=== PATIENT | male | born 1955 | race Caucasian/White ===

== ENCOUNTER 2019-03-24 19:33 | Inpatient (IN) | payer MEDICAID, SELFPAY ==
[2019-03-24] VITALS (9 sets, daily range): BP systolic 122–154; BP diastolic 76–111; PULSE 56–80; RESP 11–25; TEMP 36.5; O2SAT 96–100; BMI 25.6
--- NOTE | 2019-03-24 19:34 | CT_ITS ---
We are attempting to reach an attending provider to discuss findings. An addendum with communication details will be sent when the communication is complete. STUDY: CT BRAIN WITHOUT CONTRAST REASON FOR EXAM: Male, 63 years old. Evaluate for stroke RADIATION DOSAGE (If Supplied By Facility): DLP = ( 812.98 ) mGycm TECHNIQUE: Transaxial CT imaging of the brain was performed without administration of intravenous contrast material. Individualized dose optimization techniques were used for this CT. COMPARISON: None. FINDINGS: There is no acute bleed or infarct. There are normal white matter tracts. The ventricles are normal in configuration. There is no hydrocephalus. The visualized paranasal sinuses are clear. The mastoid air cells are well aerated. There is no skull fracture. CT/Brain/Head without Contrast IMPRESSION: No acute intracranial abnormality. Electronically Signed: Luis Eduardo Newman, at 19:53 EDT Tel , Service support ,
--- NOTE | 2019-03-24 19:34 | RAD_ITS ---
STUDY: X-RAY CHEST REASON FOR EXAM: Male, 63 years old. Neurological symptoms TECHNIQUE: Frontal view of the chest COMPARISON: None. FINDINGS: Trace pulmonary edema is present. There is no consolidation. There are no pleural effusions. There is no pneumothorax. The heart is normal in size. The visualized osseous structures are within normal limits. RAD/Chest 1 View IMPRESSION: Trace pulmonary edema. No consolidation. Electronically Signed: Luis Eduardo Newman, at 20:06 EDT Tel , Service support ,
--- NOTE | 2019-03-24 19:34 | EKG12_ITS ---
Test Reason : NEURO Blood Pressure : / mmHG Vent. Rate : 062 BPM Atrial Rate : 062 BPM P-R Int : 168 ms QRS Dur : 100 ms QT Int : 414 ms P-R-T Axes : 050 -13 031 degrees QTc Int : 420 ms Normal sinus rhythm Minimal voltage criteria for LVH, may be normal variant Borderline ECG Confirmed by KADI WOODS, LUSI A ([id number]), editor in chief SHELL RINCON ([id number]) on 03/27/2019 1:49:52 PM Referred By: Gerardo Abrams Confirmed By:MICHAEL WALLIS MD
--- NOTE | 2019-03-24 19:38 | ED.DCSUM_ITS ---
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 No one else with him. Found in the local parking lot next to his truck not acting right. Very limited history available. Prehospital stroke team called in. Capacity - Capacity Assessment Tool Can the patient make a choice & communicate that choice?: Unable to Determine Can the patient understand benefits, risks and alternatives?: No Can the patient make a logical, rational choice?: No Is the choice the patient makes consistent w/ their values?: Unable to Determine Is there an impending, emergent risk to the patient?: Yes - Altered, difficulty standing, trying to leave ([id number]) Does the patient have an Advance Directive?: Unable to Determine Is there a Surrogate Available?: No i.e. HCPOA: No i.e. close relative (spouse, child, parent, sibling)?: No - Past Medical History (1) Switzer's disease Status: Chronic Past Medical History - Allergies and Home Meds Allergies/Adverse Reactions: Allergies No Known Allergies Allergy (Verified 12/30/14 10:59) Primary Care Physician: Care Physician,No Primary [Primary Care Provider] - Smoking Status: Unknown if ever smoked Review of Systems ROS: Unable to Obtain STROKE - NIHSS Initial 1a Level of Consciousness: 0 1b LOC Questions (Score 2 if aphasic/stupor): 2 1c LOC Commands (Only score 1st attempt): 2 2 Best Gaze (If aphasic, use reflexive mvmts.): 0 3 Visual: 0 4 Facial Palsy: 0 5 Motor Arm Right (UN = amputation/fusion): 3 5 Motor Arm Left: 3 6 Motor Leg Right: 3 6 Motor Leg Left: 3 7 Limb ataxia (Only + if out of proportion): 0 8 Sensory (Aphasia/stupor=0 or 1, coma=2): 1 9 Best Language: 3 10 Dysarthria (mute, coma=2, intubated=UN): 2 11 Extinction and Inattention (only scored if +): 0 Total Score: 22 General: Well nourished, Well developed, Unkempt Head: Normocephalic, Atraumatic Eyes: Perrl, EOMI - Grossly intact, patient not following commands ENT: Moist mucous membranes, No rhinorrhea Neck: Supple, Nontender Cardiovascular: Regular rate, Regular rhythm, No murmurs Respiratory: No distress, CTA bilaterally, Chest nontender Abdomen: Soft, Nontender, Nondistended, Normal bowel sounds Back: Nontender, Normal Inspection Extremities: Nontender, No edema Skin: Normal color, No rash, Trauma - Contusion/abrasion with a small amount of blood left zygomatic arch without step-off or crepitance Neurological: Alert, Cranial nerves II-XII grossly intact, Normal Strength, Normal Sensation, Confused - Does not follow commands appropriately although at times seems to try to squeeze with his hand and lift his arm., Disoriented Psychological: - - Incontinent of urine and smells of urine. Difficult to tell if he smells of alcohol or not but patient sort of acts intoxicated. Diagnostic/Tx/Re-eval Impressions Brain CT 03/24/19 19:34 IMPRESSION: No acute intracranial abnormality. Electronically Signed: Luis Eduardo Newman, at 19:53 EDT Tel , Service support , ADDENDUM: 03/24/192000 IMPRESSION: No acute intracranial abnormality. N.B. : The above information has been verbally conveyed by Luis Eduardo Newman to Dr. Meir Arenas MD, on 03/24/2019 19:54:46 (ET). Electronically Signed: Luis Eduardo Newman, at 19:53 EDT Tel , Service support , Chest X-Ray 03/24/19 19:34 IMPRESSION: Trace pulmonary edema. No consolidation. Electronically Signed: Luis Eduardo Newman, at 20:06 EDT Tel , Service support , Head/Neck CTA 09/17/19 19:51 IMPRESSION: No CTA evidence of significant intracranial arterial pathology. No CTA evidence of significant arterial pathology in the neck. NASCET criteria was used. Electronically Signed: Дмитрий Glynn MD at 21:01 EDT Tel , Service support , 03/24/19 19:34 Brain/Head without Contrast [CT] Stat Chest 1 View [RAD] Stat 03/24/19 19:51 CTA Head AND Neck W/ Contrast [CT] Stat Laboratory Results 03/24/19 03/24/19 03/24/19 19:46 19:46 19:46 WBC 6.5 RBC 4.26 L Hgb 13.3 Hct 40.7 MCV 95.5 H MCH 31.2 MCHC 32.7 RDW Std Deviation 43.8 RDW Coeff of Anna 12.7 Plt Count 152 MPV 10.7 Immature Gran % (Auto) 0.600 Neut % (Auto) 73.8 H Lymph % (Auto) 15.9 L [place] % (Auto) 9.0 Eos % (Auto) 0.2 Baso % (Auto) 0.5 Absolute Neuts (auto) 4.8 Absolute Lymphs (auto) 1.03 Nucleated RBC % 0 PT 12.9 INR 1.0 APTT 25.1 Sodium 145 Potassium 4.3 Chloride 111 H Carbon Dioxide 31.0 Anion Gap 3 L BUN 17 Creatinine 0.83 Estim Creat Clear Calc 80.27 Est GFR (MDRD) Af Amer 120 Est GFR (MDRD) Non-Af 99 BUN/Creatinine Ratio 20.4 H Glucose 102 Calcium 8.7 Troponin I < 0.015 Urine Opiates Screen Urine Methadone Screen Ur Barbiturates Screen Ur Phencyclidine Scrn Ur Amphetamines Screen U Methamphetamin-MDMA U Benzodiazepines Scrn Urine Cocaine Screen U Cannabinoids Screen Ur Drug Screen Comment Ethyl Alcohol 03/24/19 03/24/19 19:46 19:49 WBC RBC Hgb Hct MCV MCH MCHC RDW Std Deviation RDW Coeff of Anna Plt Count MPV Immature Gran % (Auto) Neut % (Auto) Lymph % (Auto) [place] % (Auto) Eos % (Auto) Baso % (Auto) Absolute Neuts (auto) Absolute Lymphs (auto) Nucleated RBC % PT INR APTT Sodium Potassium Chloride Carbon Dioxide Anion Gap BUN Creatinine Estim Creat Clear Calc Est GFR (MDRD) Af Amer Est GFR (MDRD) Non-Af BUN/Creatinine Ratio Glucose Calcium Troponin I Urine Opiates Screen NEGATIVE Urine Methadone Screen NEGATIVE Ur Barbiturates Screen NEGATIVE Ur Phencyclidine Scrn NEGATIVE Ur Amphetamines Screen NEGATIVE U Methamphetamin-MDMA NEGATIVE U Benzodiazepines Scrn NEGATIVE Urine Cocaine Screen NEGATIVE U Cannabinoids Screen NEGATIVE Ur Drug Screen Comment Ethyl Alcohol 5.0 - Rhythm Strip Rhythm Strip: Sinus Rhythm Ectopy: None - EKG Initial EKG Interpretation: Sinus Rhythm, No Acute Injury Pattern Prior: No Prior - Medical Decision Making Stroke Team Activated: Yes - prehosp Was Patient considered for Endovascular Intervention?: Yes - neg CTA for LVO IV Alteplase (t-PA) Administered: No - due to unk timing, evidence of recent head trauma, nonlateralizing neuro ex Patient return from CT as social work had found a friend's information and discussed with him over the phone. 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 He also states that his speech is not good at baseline, but he does attempt to talk, unlike now. CT result given to me personally over the phone by the radiologist at 1953. Discussed with tele-neurology from [facility], with the relative contraindication of evidence of possible head injury, with a contusion on the left zygomatic arch, and nonfocal exam, in addition to unknown last seen normal, she agrees that IV TPA is not indicated. She recommends obtaining CT angiography to be comprehensive and make sure nothing gets missed, this was done and showed no LVO. The rest of the work-up is in addition negative. I monitored him. He slept some. I reexamined him, he is able to talk, but he is very difficult to understand. He states that he is homeless, he stays with a swathi named Flakito, knows he is in [place] but has no idea what city he is in, or what year it is. I do not think he has the capacity to leave AGAINST MEDICAL ADVICE which he is trying to do, telling me that he can walk out of here, he does not appear to be in any condition to do that, and has a very difficult time standing. He was given Ativan due to all of this and the plan is for admission for further evaluation and monitoring. Critical care time (excluding procedures): 30-74 minutes - 35 min, including time spent discussing with consultants, arranging admission, performing direct patient care at the bedside ED Disposition - Plan for ED Patient: Disposition: Acute Care Hospital [facility] Diagnosis: Acute encephalopathy, Switzer's disease Referrals: Care Physician,No Primary [Primary Care Provider] -
--- NOTE | 2019-03-24 19:41 | ED.RN ---
NO OLD EKGS IN MUSE
--- NOTE | 2019-03-24 19:51 | CT_ITS ---
STUDY: CTA HEAD AND NECK WITH CONTRAST REASON FOR EXAM: Male, 63 years old. Altered mental status RADIATION DOSAGE (If Supplied By Facility): CTDIvol = ( 20.34 ) mGy, DLP = ( 1465.77 ) mGycm TECHNIQUE: CT angiography was performed with a multi-detector CT scanner. Data acquisition was obtained from the skull base through the vertex following intravenous administration of 100 IV Isovue 370. MIP images were reconstructed from the axial data set. Post-processing of the angiographic images was performed, with multiplanar reformation and 3D reconstruction. Individualized dose optimization techniques were used for this CT. COMPARISON: Head CT same day FINDINGS: Intracranial ICA calcifications. Otherwise: Normal bilateral petrous carotid arteries. Normal right cavernous carotid artery with a normal supraclinoid bifurcation. Normal left cavernous carotid artery with a normal supraclinoid bifurcation. Normal right A1 segments of the anterior cerebral artery. Normal left A1 segments of the anterior cerebral artery. Normal intact anterior communicating artery (ACOM). Normal bilateral A2 segments of the anterior cerebral arteries. Normal right M1 and M2 segments of the middle cerebral arteries, with a normal M1 bifurcation. Normal left M1 and M2 segments of the middle cerebral arteries, with a normal M1 bifurcation. There is non-visualization of the right posterior communicating artery (PCOM). Normal left posterior communicating artery (PCOM). Normal bilateral vertebral arteries. Normal basilar artery with a normal basilar bifurcation. The visualized bilateral superior cerebellar (SCA) arteries are normal. Normal bilateral P1, P2 and visualized P3 segments of the posterior cerebral arteries. There is no demonstrated aneurysm of the [place]. There is no demonstrated abnormality of the visualized brain. AORTIC ARCH: Normal visualized aortic arch. Normal origins of the brachiocephalic, left common carotid, and left subclavian arteries. RIGHT CAROTID ARTERIES: Normal right common carotid artery (CCA). Normal right common carotid bulb. Normal origin of the right internal carotid (ICA) artery without a hemodynamically significant stenosis. Normal visualized cervical portion of the right internal carotid artery. Normal origin of the right external carotid artery (ECA). LEFT CAROTID ARTERIES: Normal left common carotid artery (CCA). Normal left common carotid bulb. Normal origin of the left internal carotid (ICA) artery without a hemodynamically significant stenosis. Normal visualized cervical portion of the left internal carotid artery. Normal origin of the left external carotid artery (ECA). VERTEBRAL ARTERIES: Normal bilateral vertebral arteries. CT/CTA Head AND Neck W/ Contrast IMPRESSION: No CTA evidence of significant intracranial arterial pathology. No CTA evidence of significant arterial pathology in the neck. NASCET criteria was used. Electronically Signed: Дмитрий Glynn MD at 21:01 EDT Tel , Service support ,
[2019-03-24 19:52] LABS: Absolute Lymphocyte Count 1.03 X10^3/uL (0.83-4.51); Absolute Neutrophil Count 4.8 X10^3/uL (2.0-7.7); Basophil# 0.03 X10^3/uL; Basophil% 0.5 % (0-1); Eosinophil# 0.01 X10^3/uL; Eosinophils% 0.2 % (0-5); Hematocrit 40.7 % (40-54); Hemoglobin 13.3 g/dL (13.0-16.5); Lymphocyte # 1.03 X10^3/ul (4.0); Lymphocyte % 15.9 % (19-41); Mean Corp Hgb Conc 32.7 g/dL (32-36); Mean Corpuscular Hgb 31.2 pg (27.0-32.0); Mean Corpuscular Volume 95.5 fL (80-94); Mean Platelet Vol. 10.7 fl (6.2-12.0); Monocyte# 0.58 X10^3/uL; NRBC Flagged by Analyzer 0 % (0-5); Neutrophil # 4.77 X10^3/uL (2.7-7.7); Neutrophil % 73.8 % (47-70); Platelet Count 152 K/mm3 (150-450); RBC Distribution Width CV 12.7 % (11.6-14.6); RBC Distribution Width SD 43.8 fl (35.1-43.9); Red Blood Count 4.26 M/mm3 (4.6-6.2); White Blood Count 6.5 K/mm3 (4.4-11.0)
--- NOTE | 2019-03-24 20:00 | CM.ED ---
Social Work Consult: Stroke Alert Patient with no family present. Patient unable to identify self and has an old I.D. in [facility]. Patient noted to have a friend listed on demographics from pervious stays. Telephone call to Cortes. Cortes stating to know patient. Cotres stating that patient does not have a permanent address and is a wonderer. Cortes stating that patient is diagnosed with [place]'s disease and that patient speaks has been getting worse over the past few months. Cortes stating to have last spoken to patient 1-2 weeks ago and was unable to understand patient. Cortes is unaware of any other medical diagnosis for patient or if patient is taking any medications. Cortes stating to believe that patient is not taking any medications. Cortes stating that patient does not abuse substances. This high school social studies teacher thanked Cortes for the information. Cortes stating that patient has support within the community. Cortes planning to contact other supports for patient. Attempted to speak with patient in room. Patient difficult to understand but stating I want out of here. Patient attempting to get out of bed on own but unable to. Patient educated that medical team is trying to treat patient and assist patient in taking care of self. Patient becoming agitated with any questioning. Support was attempted. Erick DWYER, SUSAN
[2019-03-24 20:08] LABS: Anion Gap 3 (5-15); BUN 17 mg/dL (7-18); BUN/Creat Ratio 20.4 RATIO (10-20); Calcium,Total 8.7 mg/dL (8.5-10.1); Chloride 111 mmol/L (98-107); Creatinine, Serum 0.83 mg/dL (0.70-1.30); EST Glomerular Filtration Rate 99 mL/min (>60); Est Glom Filt Rate - Afr Amer 120 mL/min (>60); Estimated Creatinine Clearance 80.27 ml/min; Glucose 102 mg/dL (74-106); Potassium 4.3 mmol/L (3.5-5.1); Sodium Level 145 mmol/L (136-145)
[2019-03-24 20:10] LABS: Partial Thromboplast Time 25.1 Seconds (24.1-36.2); Prothrombin Time (Protime)PT. 12.9 SECONDS (11.7-14.9)
--- NOTE | 2019-03-24 20:37 | ED.RN ---
Addendum entered by Vy Watson 03/24/19 21:37: xray of the chest ordered by the doc. Dr is aware of the shoulder abnormality, no further orders at this time. Original Note: Pt unable or unwilling to follow verbal commands. Pt had a brusied left hip and visible abnormality in the right shoulder possible dislocation x-ray ordered by . pt resting in bed with no further needs at this time.
[2019-03-24 20:52] LABS: Amphetamine Urine VISTA NEGATIVE (<1000 ng/mL); Barbiturate Urine VISTA NEGATIVE (< 200 ng/mL); Benzodiazepine Urine VISTA NEGATIVE (< 200 ng/mL); Cocaine Urine VISTA NEGATIVE (< 300 ng/mL); Ecstacy Urine VISTA NEGATIVE (< 500 ng/mL); Methadone Urine VISTA NEGATIVE (< 300 ng/mL); PCP Urine VISTA NEGATIVE (< 25 ng/mL); THC Urine VISTA NEGATIVE (< 50 ng/mL); Vista UDS pH Range 6
--- NOTE | 2019-03-24 21:05 | ED.RN ---
pt refuses to keep o2 on his face, md aware no further orders at this time. pt is currently resting in a position of comfort and has no further needs at this time
[2019-03-24] MEDS: LORazepam 2 MG/ML Syringe 1 MG IV (22:36)
--- NOTE | 2019-03-24 22:40 | PCM.HP.STD ---
Problem List (1) Adult failure to thrive Status: Chronic (2) Katie's disease Status: Chronic History of Present Illness Date of Admission: 03/24/19 Chief Complaint: found on the street. The patient is a 63 year old M with a significant history of Katie disease was found on the street. History is not consistent as there are mixed information of patient crawling; and also patient being unresponsive. Patient was found to be covered in his urine. It was also thought that patient was aphasic. History was taken from emergency department doctor and social media director as patient could not provide history. CT head; and CTA head and neck was unremarkable and patient was not a candidate for TPA. Emergency Department doctor; social media director and nursing staff discussed the case with patient's friend, Cortes, who thinks that patient is at baseline. Per history, patient is a wanderer and may be homeless. Reportedly patient attempted to leave the hospital but was not allowed because it was felt he was incompetent to make decision. He was given Ativan at the emergency department. Past Medical History Past Medical History (Chronic Problems): Chronic Problems [place]'s disease (Chronic) Adult failure to thrive (Chronic) Allergies No Known Allergies Allergy (Verified 12/30/14 10:59) Surgical History: - - unable to obtain due to patient not answering questions. Lives: - - Home status is unclear Smoking Status: Unknown if ever smoked Alcohol: None - per information obtained from ED doctor who spoke to friend - *Family History Maternal History Items: - - unable to obtain since patient is not answering questions. Paternal History Items: - - unable to obtain since patient is not answering questions. Review of Systems Unable to obtain accurate/complete ROS d/t: patient not answering questions. VTE Information - Inpt Only VTE Present on Admission: No VTE Mechan Device Prophylaxis: None VTE Pharm Prophylaxis ordered?: Yes - Physical Exam General: Confused, Lethargic, - - Knows the state. Does not know the year or month. HEENT: Atraumatic, PERRLA, Normocephalic Neck: Supple, No JVD Lungs: Clear to auscultation, Normal air movement Cardiovascular: Regular rate, No murmurs Abdomen: Bowel Sounds Present, Soft, Non Tender Extremities: No edema, Capillary Refill Less than 3 Seconds Skin: No rashes, No breakdown Musculoskeletal: No Tenderness to Palpation of Joints or Extremities Neurological: - - Chorea like movements; dysarthria Psych/Mental Status: - - Lethargic Vital Signs Temp Pulse Resp BP Pulse Ox 97.7 F L 63 18 122/76 H 97 03/24/19 19:33 03/24/19 21:30 03/24/19 21:30 03/24/19 21:30 03/24/19 21:30 Oxygen Flow Rate (L/min) 2 Oxygen Delivery Method Room Air Weight: 69.9 kg Body Mass Index (BMI) 25.6 Finger Stick Blood Glucose 89 Intake and Output for Last 24 Hours 03/22/19 03/23/19 03/24/19 23:59 23:59 23:59 Intake Total 500 / 500 Balance 500 / 500 Laboratory Tests Past 24 Hrs 03/24/19 03/24/19 03/24/19 19:46 19:46 19:46 WBC 6.5 RBC 4.26 L Hgb 13.3 Hct 40.7 MCV 95.5 H MCH 31.2 MCHC 32.7 RDW Std Deviation 43.8 RDW Coeff of Anna 12.7 Plt Count 152 MPV 10.7 Immature Gran % (Auto) 0.600 Neut % (Auto) 73.8 H Lymph % (Auto) 15.9 L [place] % (Auto) 9.0 Eos % (Auto) 0.2 Baso % (Auto) 0.5 Absolute Neuts (auto) 4.8 Absolute Lymphs (auto) 1.03 Nucleated RBC % 0 PT 12.9 INR 1.0 APTT 25.1 Sodium 145 Potassium 4.3 Chloride 111 H Carbon Dioxide 31.0 Anion Gap 3 L BUN 17 Creatinine 0.83 Estim Creat Clear Calc 80.27 Est GFR (MDRD) Af Amer 120 Est GFR (MDRD) Non-Af 99 BUN/Creatinine Ratio 20.4 H Glucose 102 Calcium 8.7 Troponin I < 0.015 Urine Opiates Screen Urine Methadone Screen Ur Barbiturates Screen Ur Phencyclidine Scrn Ur Amphetamines Screen U Methamphetamin-MDMA U Benzodiazepines Scrn Urine Cocaine Screen U Cannabinoids Screen Ur Drug Screen Comment Ethyl Alcohol 03/24/19 03/24/19 19:46 19:49 WBC RBC Hgb Hct MCV MCH MCHC RDW Std Deviation RDW Coeff of Anna Plt Count MPV Immature Gran % (Auto) Neut % (Auto) Lymph % (Auto) [place] % (Auto) Eos % (Auto) Baso % (Auto) Absolute Neuts (auto) Absolute Lymphs (auto) Nucleated RBC % PT INR APTT Sodium Potassium Chloride Carbon Dioxide Anion Gap BUN Creatinine Estim Creat Clear Calc Est GFR (MDRD) Af Amer Est GFR (MDRD) Non-Af BUN/Creatinine Ratio Glucose Calcium Troponin I Urine Opiates Screen NEGATIVE Urine Methadone Screen NEGATIVE Ur Barbiturates Screen NEGATIVE Ur Phencyclidine Scrn NEGATIVE Ur Amphetamines Screen NEGATIVE U Methamphetamin-MDMA NEGATIVE U Benzodiazepines Scrn NEGATIVE Urine Cocaine Screen NEGATIVE U Cannabinoids Screen NEGATIVE Ur Drug Screen Comment Ethyl Alcohol 5.0 Assessment/Plan The patient is a 63 year old M with a significant history of [place] disease was found on the street and was thought to be having a stroke because of aphasia and poor motor. Adult Failure to thrive Initially thought to be having acute encephalopathy, CT/CTA head and neck was unremarkable; and patient's friend who ED staff discussed patient with thinks patient is at baseline. Drug screen and EtOH level was unremarkable PT/OT to work with patient. Speech therapy to evaluate for patient for speech and swallowing skills. PO until speech eval and recommendations Case management to work with patient for possible placement. Trace Pulmonary Edema Impression of CXR is trace pulmonary edema Patient's oxygen saturation is appropriate. He has no fever or leukocytosis Received IVF at ED. Hold off further IVF. Resume po if indicated after speech eval and recommendations Clinical monitoring. [place]'s Disease Consider ativan prn if chorea persist and it is bothersome and if baseline cognition is confirmed. DVT Prophylaxis Subcutaneous Lovenox Code Visit Inpatient E&M: 03925 Init Hosp L3
--- NOTE | 2019-03-24 22:52 | ED.RN ---
NIH ASSESSMENT DISCONTINUED PER DR. COLON. PT IS RESTING COMFORTABLY WITH NO FURTHER NEEDS AT THIS TIME.
--- NOTE | 2019-03-24 23:49 | ED.RN ---
16FR BANDA CATHETER WAS PLACED AT 1939 PER MD ORDER FOR ACCURATE MEASUREMENT OF URINE OUTPUT.
[2019-03-25] VITALS (8 sets, daily range): BP systolic 100–152; BP diastolic 62–104; PULSE 60–76; RESP 16–20; TEMP 36.6–37.4; O2SAT 93–99; BMI 18.8; BMI 18.9
--- NOTE | 2019-03-25 00:10 | NURSING ---
Pt unable to answer any questions for admission. As nurse unable to fill out a lot of information due to pt being nonverbal, and no support system present to help with questions.
--- NOTE | 2019-03-25 09:00 | MRI_ITS ---
STUDY: MRI BRAIN WITHOUT CONTRAST REASON FOR EXAM: Male, 63 years old. Confusion -- confusion, hx kortney's disease. TECHNIQUE: Standardized multiplanar fat and water weighted pulse sequences were obtained. COMPARISON: March 14, 2019 FINDINGS: There is mild cerebral atrophy with widening of the extra-axial spaces and ventricular dilatation. There are a limited number of small white matter hyperintensities, distributed throughout the deep white matter tracts of the cerebral hemispheres, consistent with mild chronic white matter ischemic changes. Normal bilateral basal ganglia. Normal thalami. There is no extra-axial fluid accumulation. Normal flow voids within the major intracranial circulation suggesting patency by spin echo criteria. Normal sella turcica, pituitary gland, infundibular stalk, optic chiasm and hypothalamus. Normal tectal plate and pineal gland. Normal midbrain, matt and medulla. Normal cerebellum. Normal basal cisterns. MRI/Brain without Contrast IMPRESSION: No acute intracranial abnormality. Electronically Signed: Eren Merlos MD at 16:01 EDT Tel , Service support ,
--- NOTE | 2019-03-25 09:01 | PCM.PN.HOSP ---
Subjective: Patient was seen and examined. Admitted last night after being found reportedly unresponsive in the parking lot. Patient has been agitated and slightly combative. He wants to go home. Seen by speech therapist and placed on diet. 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 Vitals/I&O's: Vital Signs Temp Pulse Resp BP Pulse Ox 98.1 F 76 18 149/62 H 98 03/25/19 08:00 03/25/19 08:00 03/25/19 08:00 03/25/19 08:00 03/25/19 08:00 Oxygen Flow Rate (L/min) 2 Oxygen Delivery Method Room Air Weight: 64.9 kg Body Mass Index (BMI) 18.8 Finger Stick Blood Glucose 89 Intake and Output for Last 24 Hours 03/23/19 03/24/19 03/25/19 23:59 23:59 23:59 Intake Total 500 / 500 0 / 0 Output Total 1000 / 1000 Balance 500 / 500 -1000 / -1000 General: Alert, Oriented x3, - - Hard to hear, HEENT: Atraumatic, PERRLA, EOMI, Normocephalic Oral: Moist Mucosa Neck: Supple Lungs: Clear to auscultation, Normal air movement Cardiovascular: Regular rate, Regular Rhythm, Normal S1, Normal S2, No murmurs Abdomen: Bowel Sounds Present, Soft, Non Tender, Non-Distended, No Hepato-splenomegaly Extremities: No edema Skin: No rashes, No breakdown Musculoskeletal: No Tenderness to Palpation of Joints or Extremities Lymphatic: No Cervical, Supraclavicular, or Inguinal Adenopathy Neurological: Cranial nerves II-XII grossly intact, Neuro grossly intact Psych/Mental Status: Normal Affect, Appropriate Laboratory Results 03/24/19 19:46: WBC 6.5, RBC 4.26 L, Hgb 13.3, Hct 40.7, MCV 95.5 H, MCH 31.2, MCHC 32.7, RDW Std Deviation 43.8, RDW Coeff of Anna 12.7, Plt Count 152, MPV 10.7, Immature Gran % (Auto) 0.600, Neut % (Auto) 73.8 H, Lymph % (Auto) 15.9 L, Churchill % (Auto) 9.0, Eos % (Auto) 0.2, Baso % (Auto) 0.5, Absolute Neuts (auto) 4.8, Absolute Lymphs (auto) 1.03, Nucleated RBC % 0 03/24/19 19:46: PT 12.9, INR 1.0, APTT 25.1 03/24/19 19:46: Sodium 145, Potassium 4.3, Chloride 111 H, Carbon Dioxide 31.0, Anion Gap 3 L, BUN 17, Creatinine 0.83, Estim Creat Clear Calc 80.27, Est GFR (MDRD) Af Amer 120, Est GFR (MDRD) Non-Af 99, BUN/Creatinine Ratio 20.4 H, Glucose 102, Calcium 8.7, Troponin I < 0.015 03/24/19 19:46: Ethyl Alcohol 5.0 03/24/19 19:49: Urine Opiates Screen NEGATIVE, Urine Methadone Screen NEGATIVE, Ur Barbiturates Screen NEGATIVE, Ur Phencyclidine Scrn NEGATIVE, Ur Amphetamines Screen NEGATIVE, U Methamphetamin-MDMA NEGATIVE, U Benzodiazepines Scrn NEGATIVE, Urine Cocaine Screen NEGATIVE, U Cannabinoids Screen NEGATIVE, Ur Drug Screen Comment Current Medications Dextrose (D50w Syringe) 0 gm IV X1 PRN; Protocol PRN Reason: Hypoglycemia Enoxaparin Sodium (Lovenox) 40 mg SC DAILY@1000 ROOSEVELT Glucagon () 1 mg IM .X1 PRN PRN Reason: Hypoglycemia Sodium Chloride () 500 mls @ 999 mls/hr IV .Q31M ONE Last Infusion: 03/24/19 20:35 Dose: Infused Documented by: Sodium Chloride () 250 mls @ 15 mls/hr IV .[id number] PRN PRN Reason: SALINE FLUSH Sodium Chloride () 10 - 40 ml IV UD PRN PRN Reason: SALINE FLUSH Medical Necessity - Tobacco Use Smoking Status: Unknown if ever smoked Assessment/Plan 63-year-old with past medical history of [place]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 Debility secondary to [place]'s disease with chorea, patient is a huge fall risk, No family or social service support. Patient is homeless. We will get PT and OT to eval 2. Cognitive impairment secondary to [place]'s disease with chorea, unclear if patient has medical decision-making capacity No family support. Only contact is a friend. Will attempt to see if patient can to some mini cog testing tomorrow whilst social service looks into picking up history about this patient as his ID card shows that he is from [place]. If nothing comes up, patient may need to be discharged with referral for administrator social welfare support. 3. DVT prophylaxis with Lovenox subcu Code Visit Inpatient E&M: 04632 Subs Hosp L2
--- NOTE | 2019-03-25 12:02 | CASEMGMT ---
CHARLETTE spoke with patient's friend, Cortes to obtain more background information. Cortes said patient does not have any family. He was born and raised in [place]. Patient's parents have . Patient is truly a wanderer. He hitchhikes wherever he wants to go. That is how Cortes met him. He picked him up when he was hitchhiking about 10 years ago. He said patient purposely doesn't carry a pack or anything so he can come and go whenever he wants. He is not involved with any community agencies as he does not want to and he is not around long enough. He said he lost contact with him over the last 3 years as he was in [place] staying in government housing. However, he decided he wanted to leave and he left. He said he is pretty sure patient gets a check from Social Security. These are usually direct deposited into an bank account. Patient sometimes stays at the [facility] [address] in [place]. He said patient is going to want to leave the hospital as soon as he can as he will see it as a long-term. He does not like to be confined. He walked 20 miles on a broken ankle one time just to avoid going to the hospital. He said he and many other people in the community have tried to help him and he does not want any help. CHARLETTE thanked him for the information. Doris DWYER
[2019-03-25] MEDS: LORazepam 2 MG/ML Syringe IV (13:09)
--- NOTE | 2019-03-25 14:42 | NURSING ---
Read and reviewed SN documentation
--- NOTE | 2019-03-25 14:57 | CASEMGMT ---
[facility] insurance cards from 2014 and 2016 found in pt wallet and this ARNULFO MATTHEW placed call to [facility] at this time and they state that pt's coverage was terminated as of 01/05/2019. Macie ARREDONDO CM
--- NOTE | 2019-03-25 15:28 | CASEMGMT ---
Patient was going to be discharged today, but he could not walk. Patient does not have insurance and it looks like he is not an [place] resident as the only ID he has is from [place]. Therefore, SW is not sure if we can try for emergency guardianship. SW to check on this. Doris DAVIS MSW
[2019-03-25] MEDS: QUEtiapine 25 MG Tablet PO ×2 (15:54→21:29)
[2019-03-25] MEDS: LORazepam 2 MG/ML Syringe 1 MG IV (19:15)
[2019-03-25] MEDS: 0.9% NaCl Peripheral Flush Adult/Peds IV (19:15)
[2019-03-26] VITALS (8 sets, daily range): BP systolic 133–146; BP diastolic 75–88; PULSE 61–104; RESP 16–22; TEMP 35.8–37.2; O2SAT 96–99
[2019-03-26] MEDS: 0.9% NaCl Peripheral Flush Adult/Peds IV ×6 (01:30→17:14)
[2019-03-26] MEDS: LORazepam 2 MG/ML Syringe 1 MG IV ×3 (01:30→06:26)
[2019-03-26] MEDS: LORazepam 2 MG/ML Syringe IV ×3 (03:00→17:14)
--- NOTE | 2019-03-26 07:44 | EKG12_ITS ---
Test Reason : Blood Pressure : / mmHG Vent. Rate : 073 BPM Atrial Rate : 073 BPM P-R Int : 162 ms QRS Dur : 102 ms QT Int : 420 ms P-R-T Axes : 054 002 041 degrees QTc Int : 462 ms Normal sinus rhythm Incomplete right bundle branch block Minimal voltage criteria for LVH, may be normal variant Borderline ECG No previous ECGs available Confirmed by CHRISTINE WOODS, BRENDA ([id number]), editor department SHELL RINCON ([id number]) on 03/30/2019 9:29:14 AM Referred By: Gerardo Abrams Confirmed By:BRENDA KING MD
[2019-03-26] MEDS: Ziprasidone IM 20 MG/ML VIAL IM ×2 (07:45→20:29)
--- NOTE | 2019-03-26 07:46 | PN_ITS ---
Subjective: Patient was seen and examined. He is agitated, trying to get out of bed. He wants to go home. 5 nurses were holding him down to prevent him from getting out of bed. He was violent yesterday when he tried to get out of bed and a code violent was called. He was medicated with Ativan 2mg IV x 1. Overnight, he has been medicated several times with Ativan for trying to get out of bed. There was a sitter by his bedside. Vitals/I&O's: Vital Signs Temp Pulse Resp BP Pulse Ox 98.1 F 76 16 133/79 H 96 03/26/19 02:27 03/26/19 02:27 03/26/19 02:27 03/26/19 02:27 03/26/19 02:27 Oxygen Flow Rate (L/min) 2 Oxygen Delivery Method Room Air Weight: 64.9 kg Body Mass Index (BMI) 18.8 Finger Stick Blood Glucose 89 Intake and Output for Last 24 Hours 03/24/19 03/25/19 03/26/19 23:59 23:59 23:59 Intake Total 500 / 500 140 / 140 15 / 15 Output Total 1200 / 1200 Balance 500 / 500 -1060 / -1060 15 / 15 General: Alert, Oriented x3, - - garbled speech, HEENT: Atraumatic, PERRLA, EOMI, Normocephalic, - - bad dentition, whitish coating of tongue Oral: Moist Mucosa Neck: Supple Lungs: Clear to auscultation, Normal air movement Cardiovascular: Regular rate, Regular Rhythm, Normal S1, Normal S2, No murmurs Abdomen: Bowel Sounds Present, Soft, Non Tender, Non-Distended Extremities: No edema Skin: No rashes, No breakdown Musculoskeletal: No Tenderness to Palpation of Joints or Extremities Lymphatic: No Cervical, Supraclavicular, or Inguinal Adenopathy Neurological: Cranial nerves II-XII grossly intact, Unsteady Gait, - - Chorea of both upper and lower extremities present. Psych/Mental Status: Normal Affect, Appropriate Current Medications Dextrose (D50w Syringe) 0 gm IV X1 PRN; Protocol PRN Reason: Hypoglycemia Enoxaparin Sodium (Lovenox) 40 mg SC DAILY@1000 ROOSEVELT Last Admin: 03/25/19 10:04 Dose: Not Given Documented by: Glucagon () 1 mg IM .X1 PRN PRN Reason: Hypoglycemia Sodium Chloride () 500 mls @ 999 mls/hr IV .Q31M ONE Last Infusion: 03/24/19 20:35 Dose: Infused Documented by: Sodium Chloride () 250 mls @ 15 mls/hr IV .[id number] PRN PRN Reason: SALINE FLUSH Lorazepam (Ativan) 1 mg IV Q4H PRN PRN PRN Reason: AGITATION Last Admin: 03/26/19 05:40 Dose: 1 mg Documented by: Quetiapine Fumarate (Seroquel) 50 mg PO QHS ROOSEVELT Sodium Chloride () 10 - 40 ml IV UD PRN PRN Reason: SALINE FLUSH Last Admin: 03/26/19 05:40 Dose: 10 ml Documented by: Medical Necessity - Tobacco Use Smoking Status: Unknown if ever smoked Assessment/Plan 63-year-old with past medical history 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 1.Debility secondary to [place]'s disease with chorea, unclear of previous management. No reported family or social service support. Patient is homeless. Status post multiple doses of Ativan, aggressive trying to get out of bed. Plan: Geodon 20mg IM x 1, Neurology consult, social media marketing analyst consult for discharge planning, 4 point restraints with asscociated management and documentation for restraints. 2. 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 Only contact is a friend. Will attempt to see if patient can to some mini cog testing tomorrow whilst social service looks into picking up history about this patient as his ID card shows that he is from [place]. If nothing comes up, patient may need to be discharged with referral for social media marketing analyst support. 3. DVT prophylaxis with Lovenox subcu 4. Disposition: Pending more information possibly to be obtained from social media marketing analyst. Code Visit Inpatient E&M: 42179 Subs Hosp L3
--- NOTE | 2019-03-26 08:07 | NURSING ---
0740 x4 soft wrist restraints applied for patient's safety. Patient continually trying to get out of bed and wanting to leave. Patient max 2-3 assist when up with unsteady gait due to health history. Patient alert to person and place only. Dr. Fuentes at bedside to assess patient prior to application. Written order obtained for restraints and new med orders received. Restraint use explained to patient. No family to contact. Vitals stable. Medication administered by this RN. Monitoring patient 1:1.
--- NOTE | 2019-03-26 08:28 | NURSING ---
Patient slightly calm but sill restless. Right lower extremity restraint untied from bed at this time. other 3 restraints still intact.
[2019-03-26] MEDS: Enoxaparin 40 MG/0.4 ML Syringe SC (09:12)
--- NOTE | 2019-03-26 09:58 | CON.PCM_ITS ---
Reason for Consult Date of Consultation: 03/26/19 Reason for Consultation: Huntingtons History of Present Illness: The patient is a 63 year old M now sedated, apparently agitated and confused but possibly baseline as below. per admit note:The patient is a 63 year old M with a significant history of [place] disease was found on the street. History is not consistent as there are mixed information of patient crawling; and also patient being unresponsive. Patient was found to be covered in his urine. It was also thought that patient was aphasic. History was taken from emergency department doctor and social service liaison as patient could not provide history. CT head; and CTA head and neck was unremarkable and patient was not a candidate for TPA. Emergency Department doctor; social service liaison and nursing staff discussed the case with patient's friend, Cortes, who thinks that patient is at baseline. Per history, patient is a wanderer and may be homeless. Reportedly patient attempted to leave the hospital but was not allowed because it was felt he was incompetent to make decision. He was given Ativan at the emergency department. Past Medical History Past Medical History (Chronic Problems): Chronic Problems [place]'s disease (Chronic) Adult failure to thrive (Chronic) Allergies No Known Allergies Allergy (Verified 12/30/14 10:59) Surgical History: - - unable to obtain due to patient not answering questions. Lives: - - Home status is unclear Smoking Status: Unknown if ever smoked Alcohol: None - per information obtained from ED doctor who spoke to friend - *Family History Maternal History Items: - - unable to obtain since patient is not answering questions. Paternal History Items: - - unable to obtain since patient is not answering questions. Review of Systems Unable to obtain accurate/complete ROS d/t: sedated Objective: awake, dysarthric, new since irwin per morning show newscast producer follows simple commands negrete - Physical Exam Vital Signs Temp Pulse Resp BP Pulse Ox 37.2 C 84 18 134/86 H 96 03/26/19 07:59 03/26/19 07:59 03/26/19 07:59 03/26/19 07:59 03/26/19 07:59 Oxygen Flow Rate (L/min) 2 Oxygen Delivery Method Room Air Weight: 64.9 kg Body Mass Index (BMI) 18.8 Finger Stick Blood Glucose 89 Intake and Output for Last 24 Hours 03/24/19 03/25/19 03/26/19 23:59 23:59 23:59 Intake Total 500 / 500 140 / 140 Output Total 1200 / 1200 Balance 500 / 500 -1060 / -1060 Current Medications Generic Name Dose Route Start Last Admin Trade Name Freq PRN Reason Stop Dose Admin Dextrose 0 gm 03/25/19 00:19 D50w Syringe IV X1 PRN Hypoglycemia Protocol Enoxaparin Sodium 40 mg 03/25/19 10:00 03/26/19 09:12 Lovenox SC 40 mg DAILY@1000 ROOSEVELT Administration Glucagon 1 mg 03/25/19 00:19 IM .X1 PRN Hypoglycemia Sodium Chloride 500 mls @ 999 mls/hr 03/24/19 19:34 03/24/19 20:35 IV Infused .Q31M ONE Infusion Sodium Chloride 250 mls @ 15 mls/hr 03/25/19 00:55 IV .[id number] PRN SALINE FLUSH Lorazepam 1 mg 03/25/19 15:16 03/26/19 05:40 Ativan IV 1 mg Q4H PRN PRN Administration AGITATION Quetiapine Fumarate 50 mg 03/26/19 22:00 Seroquel PO QHS ROOSEVELT Sodium Chloride 10 - 40 ml 03/25/19 00:55 03/26/19 09:00 IV 10 ml UD PRN Administration SALINE FLUSH mri reviewed, no acute Assessment/Plan 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
--- NOTE | 2019-03-26 13:26 | CASEMGMT ---
Guardianship cannot be pursued as patient is not a resident of [place]. SW is attempting to reach someone in [place] that may know patient as patient is not coherent enough to understand and cannot give us any information. He is not safe to release from the hospital as he cannot walk and his cognitive status is questionable. CHARLETTE and charge entry looked in patient's wallet to see if he has any contact people. He had an appt card for a [facility] in [place], [place]. The appt was October 28, 2018. SW called [facility]. Patient was last seen there in Jul. He rescheduled the appt 10-28 to 11-04 and then no showed. He had a personal chef listed, Lucy Zaragoza [phone]. This was also the number patient listed for himself according to their records. CHARLETTE thanked them for the information. CHARLETTE called the phone number listed above. It is an alcohol and drug rehab facility by the name of [facility]. Lucy does work there, but she is not in today. CHARLETTE left SW's name and phone number for her to call SW back. CHARLETTE called [facility] and they said they could not help SW. They suggested SW call [facility], they may be able to give SW some information. CHARLETTE then called [facility] since this is the [facility] patient most recently associated with. CHARLETTE left a voice mail for a supervisor type bar and segment to call SW back. CHARLETTE then received a call from another employee at [facility]. She said Lucy is on vacation until next week. She asked what SW needed. CHARLETTE explained the situation and that we are trying to find someone that knows more about patient. She said she will see what she can find and call SW back. CHARLETTE then called [facility] as patient was in public housing for awhile. They will pull the chart and call SW back. CHARLETTE attempted to talk with patient. CHARLETTE asked if he recognized the name Lucy Zaragoza. He did not seem to recognize the name. CHARLETTE mentioned [place], [place] and [facility]. Patient was talking a lot, but SW cannot understand anything he is saying other than a few words. He may have said something about having buddies down there and something about a BBQ place. SW to continue to try and locate someone for patient. Doris DAVIS MSW
--- NOTE | 2019-03-26 16:01 | CASEMGMT ---
Addendum entered by Doris Darling 03/26/19 16:52: When CHARLETTE talked with patient's friend, Evi she said patient was born in [place]. His parents have . His mom had Katie's Disease as did his cousin who killed himself. She also asked if she could talk with patient as she can usually understand him. CHARLETTE and RN assisted patient in talking with Evi. He seemed to know who she was and carry on a conversation. SW could not understand anything he said. Evi said he just told her he is in the hospital and does not know why. Doris Darling [facility] Original Note: SW received a call from a Evi Axel. She said she is one of patient's friends. She and her took him in several years ago. She said he comes and goes as he wants. For awhile she took him to appointments. She has helped him apply for Medicaid. She told SW that he has [place]'s Disease and SW let her know that we did know this. She said he does not like to be confined and he can get violent. He likes his freedom, he likes to smoke, and drink his coffee. She said he has insurance and SW let her know it termed in January. SW asked her if he had an alcohol or drug problem. She said he does not. She said he stayed at [facility] which is an alcohol and drug rehab. The only reason he was there is because he went into the housing authority and one of the supervisors there allowed him to stay there because he had no where else to go. She said her name was Lucy. Lucy also helped patient for awhile with appts etc. She asked if he was okay. CHARLETTE told her he is ok and we are working on a plan, but right now he cannot walk. She was worried about him going to a detention. CHARLETTE asked if he would be able to come and stay with her again. She said she would have to ask her . She is aware of Cortes, patient's local friend in [place]. She asked that SW keep her updated. CHARLETTE then received a message from a Colleen Diaz from [facility]/ [facility] Services. She is not familiar with patient. The last time they had any involvement was in 2008. She said SW should contact the local Adult Protective Services to see if they can assist with patient. CHARLETTE thanked her for calling SW back. CHARLETTE then received a call from a Julia Bowles from [facility]. She said her detasseling crew supervisor, Lucy Zaragoza would like SW to call her on her cell phone, but not until after 5p. Her cell number is [phone]. CHARLETTE then spoke with Juliana from [facility]. CHARLETTE explained the situation and she is not sure what to do. She told SW to call her after CHARLETTE talks with Lucy. Doris DAVIS MSW
--- NOTE | 2019-03-26 17:07 | CASEMGMT ---
Addendum entered by Doris Darling 03/26/19 17:16: CHARLETTE attempted 1 more time to call Lucy with the same results. Doris DAVIS [employer] Original Note: CHARLETTE attempted to call Lucy two times after 5p as was requested. The first time it rang several times and then the voice mail was full. The second time it only rang two times and then went to the same full voice mail. Doris DAVIS MSW
--- NOTE | 2019-03-26 20:04 | NURSING ---
Addendum entered by Jalyn Benoit 03/26/19 20:24: Zoey feels this is not an emergent situation for tonight, he is safe in the hospital, to call in the am. Original Note: Called Zoey at crisis center to have them come see patient. Gave update on patient. Explained to her Dr. Fuentes says he is medically cleared. She does not feel he is medically cleared. She advised to call crisis in the morning.
--- NOTE | 2019-03-26 22:13 | NURSING ---
Crisis called in to ask if pt had been medically cleared. Aware that per Dr. Fuentes, pt was medically cleared. Crisis currently in er seeing other pts and is to call back to see if pt more awake to be able to ask pt questions, aware that pt had received geodon im for agitation earlier this evening.
[2019-03-26] MEDS: QUEtiapine 25 MG Tablet 50 MG PO (23:31)
[2019-03-27] VITALS (9 sets, daily range): BP systolic 129–152; BP diastolic 80–95; PULSE 72–95; RESP 16–18; TEMP 36.3–37.3; O2SAT 94–98
[2019-03-27] MEDS: LORazepam 2 MG/ML Syringe IV ×4 (02:45→22:23)
[2019-03-27] MEDS: 0.9% NaCl Peripheral Flush Adult/Peds IV ×3 (02:45→22:23)
[2019-03-27 05:42] LABS: Absolute Neutrophil Count 5.4 X10^3/uL (2.0-7.7); Basophil# 0.03 X10^3/uL; Basophil% 0.4 % (0-1); Eosinophil# 0.03 X10^3/uL; Eosinophils% 0.4 % (0-5); Hematocrit 41.5 % (40-54); Hemoglobin 13.6 g/dL (13.0-16.5); Mean Corp Hgb Conc 32.8 g/dL (32-36); Mean Corpuscular Hgb 30.5 pg (27.0-32.0); Monocyte# 0.66 X10^3/uL; Monocyte% 9.3 % (0-10); NRBC Flagged by Analyzer 0 % (0-5); Neutrophil # 5.38 X10^3/uL (2.7-7.7); Neutrophil % 75.6 % (47-70); Platelet Count 150 K/mm3 (150-450); RBC Distribution Width CV 12.3 % (11.6-14.6); RBC Distribution Width SD 42.2 fl (35.1-43.9); Red Blood Count 4.46 M/mm3 (4.6-6.2); White Blood Count 7.1 K/mm3 (4.4-11.0)
[2019-03-27 05:55] LABS: Anion Gap 7 (5-15); BUN 11 mg/dL (7-18); BUN/Creat Ratio 16.5 RATIO (10-20); Calcium,Total 8.7 mg/dL (8.5-10.1); Chloride 112 mmol/L (98-107); Creatinine, Serum 0.67 mg/dL (0.70-1.30); EST Glomerular Filtration Rate 128 mL/min (>60); Est Glom Filt Rate - Afr Amer 155 mL/min (>60); Estimated Creatinine Clearance 104.94 ml/min; Glucose 80 mg/dL (74-106); Potassium 3.6 mmol/L (3.5-5.1); Sodium Level 146 mmol/L (136-145)
--- NOTE | 2019-03-27 08:34 | NURSING ---
PT AGITATED, RESTLESS. ATTEMPTING TO SIT UP IN BED/GET OOB. OFFERED PT BREAKFAST. PT REFUSED. PT STATES I WANT A PEPSI OR A BEER. TOLD PT HE COULD HAVE NEITHER, PT TOLD THIS NURSE TO SHUT UP. ATIVAN GIVEN PER PRN ORDER. PT INCONT OF URINE - BRIEF CHANGED WITH 2 ASSIST.
[2019-03-27] MEDS: QUEtiapine 25 MG Tablet 50 MG PO (09:07)
[2019-03-27] MEDS: Enoxaparin 40 MG/0.4 ML Syringe SC (09:07)
--- NOTE | 2019-03-27 09:14 | NURSING ---
PT REMAINS RESTLESS, PULLING @ RESTRAINTS, ATTEMPTING TO GET OOB. CRISIS IN TO ASSESS PT, STATES THEY ARE UNABLE DUE TO INABILITY TO UNDERSTAND HIM/GARBLED SPEECH.
--- NOTE | 2019-03-27 15:59 | NURSING ---
PT AWAKE, RESTLESS. S.T. IN TO ASSESS PT, BUT PT UNCOOPERATIVE @ THIS TIME. S.T. DID PROVIDE ORAL CARE. PTS MOUTH VERY DRY,CRUSTY WITH BROWN AREAS. DR SMART TEXT FOR POSSIBLE ORDER FOR NYSTATIN S&S.
--- NOTE | 2019-03-27 16:30 | PN_ITS ---
Vitals/I&O's: Vital Signs Temp Pulse Resp BP Pulse Ox 97.3 F L 95 18 136/84 H 97 03/27/19 13:34 03/27/19 13:34 03/27/19 13:47 03/27/19 13:34 03/27/19 13:34 Oxygen Flow Rate (L/min) 2 Oxygen Delivery Method Room Air Weight: 64.9 kg Body Mass Index (BMI) 18.8 Finger Stick Blood Glucose 89 Intake and Output for Last 24 Hours 03/25/19 03/26/19 03/27/19 23:59 23:59 23:59 Intake Total 140 / 140 1122 / 1122 Output Total 1200 / 1200 Balance -1060 / -1060 112 / 2 Laboratory Results 03/27/19 05:25: WBC 7.1, RBC 4.46 L, Hgb 13.6, Hct 41.5, MCV 93.0, MCH 30.5, MCHC 32.8, RDW Std Deviation 42.2, RDW Coeff of Anna 12.3, Plt Count 150, MPV 11.0, Immature Gran % (Auto) 0.300, Neut % (Auto) 75.6 H, Lymph % (Auto) 14.0 L, Hood % (Auto) 9.3, Eos % (Auto) 0.4, Baso % (Auto) 0.4, Absolute Neuts (auto) 5.4, Absolute Lymphs (auto) 1.00, Nucleated RBC % 0 03/27/19 05:25: Sodium 146 H, Potassium 3.6, Chloride 112 H, Carbon Dioxide 27.0, Anion Gap 7, BUN 11, Creatinine 0.67 L, Estim Creat Clear Calc 104.94, Est GFR (MDRD) Af Amer 155, Est GFR (MDRD) Non-Af 128, BUN/Creatinine Ratio 16.5, Glucose 80, Calcium 8.7 Current Medications Calamine/Phenol (Calmoseptine Ointment) 1 applic TOPICAL TID [facility]; Protocol Dextrose (D50w Syringe) 0 gm IV X1 PRN; Protocol PRN Reason: Hypoglycemia Enoxaparin Sodium (Lovenox) 40 mg SC DAILY@1000 [facility] Last Admin: 03/27/19 09:07 Dose: 40 mg Documented by: Glucagon () 1 mg IM .X1 PRN PRN Reason: Hypoglycemia Sodium Chloride () 500 mls @ 999 mls/hr IV .Q31M ONE Last Infusion: 03/24/19 20:35 Dose: Infused Documented by: Sodium Chloride () 250 mls @ 15 mls/hr IV .[id number] PRN PRN Reason: SALINE FLUSH Thiamine HCl 200 mg/ Sodium (Chloride) 52 mls @ 200 mls/hr IV DAILY [facility] Last Infusion: 03/27/19 09:50 Dose: Infused Documented by: Lorazepam (Ativan) 2 mg IV Q4H PRN PRN PRN Reason: AGITATION Last Admin: 03/27/19 08:18 Dose: 2 mg Documented by: Nicotine (Nicoderm Cq (Pbkc)) 21 mg TRANSDERM. DAILY [facility] Last Admin: 03/27/19 10:44 Dose: 21 mg Documented by: Nicotine Polacrilex (Rugby Nicotine (Bkc)) 2 mg PO Q2H PRN PRN PRN Reason: Nicotine Craving Quetiapine Fumarate (Seroquel) 50 mg PO BID [facility] Last Admin: 03/27/19 09:07 Dose: 50 mg Documented by: Sodium Chloride () 10 - 40 ml IV UD PRN PRN Reason: SALINE FLUSH Last Admin: 03/27/19 08:18 Dose: 10 ml Documented by: Medical Necessity - Tobacco Use Smoking Status: Unknown if ever smoked Assessment/Plan 63-year-old with past medical history of Gonzales's disease with chorea, with resultant debility, who is reportedly homeless, and has been wandering, admitted after being found unresponsive in a parking lot. 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 Patient is homeless. Status post multiple doses of Ativan, aggressive trying to get out of bed. In 4 point restraints; evaluated, sitter at bedside Mobile crisis consult pending Plan: Continue on PRN antipsychotics for agitation Continue on Seroquel 50 mg p.o. twice daily social insurance administrator working on discharge planning, 4 point restraints with asscociated management and documentation for restraints. 2. 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 Only contact is a friend. Mini cog testing to be done by social insurance administrator Will fill the statement of expert eval for court appointed guardian. 3. DVT prophylaxis with Lovenox subcu 4. Disposition: Pending mobile crisis eval, court appointed guardianship Code Visit Inpatient E&M: 63765 Subs Hosp L2
--- NOTE | 2019-03-27 17:29 | CASEMGMT ---
CHARLETTE made numerous phone calls to [facility] and finally did find out patient has active [place] Medicaid. His Medicaid number is [id number]. SW sent the copy of his card to registration. SW attempted to talk with patient to see if he could draw a clock as part of the mini cognitive assessment. However, patient could not even hold the pen in his hand. He was saying a lot, but SW nor RN can under stand him. SW did catch a couple things like You won't be able to read it and that he is left handed. CHARLETTE will work with appropriate individuals to determine a d/c plan. It is complicated as he is a [place] resident and he needs a guardian. There is a question of whether or not we can get guardianship in [place]. Doris DAVIS MSW
--- NOTE | 2019-03-27 18:12 | NURSING ---
PT AWAKE, RESTLESS, ASKING FOR WHAT SOUNDS LIKE WATER OR POP. TRIED TO GIVE PT A DRINK, BUT PT COULDN'T COMPREHEND DRINKING FROM THE STRAW. PUT TINY AMOUNT POP ON PTS TONGUE WITH SPOON & PT ALSO UNABLE TO COMPREHEND SWALLOWING.
--- NOTE | 2019-03-27 18:22 | NURSING ---
PT VERY RESTLESS, TRYING TO GET OOB, YELLING I WANT MY MONEY SO I CAN GET OUT OF HERE. ATTEMPTS TO REORIENT PT UNSUCCESSFUL. PT KEEPS STATING WHERE HE IS GOING, BUT THIS NURSE CANNOT UNDERSTAND HIM.
[2019-03-27] MEDS: Menthol/Lanolin/Calamine/Znox 113 GM Tube 1 APPLIC TOPICAL (21:34)
[2019-03-28 01:30] VITALS: BP 140/89; PULSE 85; RESP 16; TEMP 37.1; O2SAT 96
[2019-03-28] MEDS: 0.9% NaCl Peripheral Flush Adult/Peds IV ×3 (02:59→19:35)
[2019-03-28] MEDS: LORazepam 2 MG/ML Syringe IV ×4 (03:00→19:35)
[2019-03-28] MEDS: Menthol/Lanolin/Calamine/Znox 113 GM Tube 1 APPLIC TOPICAL ×3 (04:59→19:36)
[2019-03-28 06:00] VITALS: BP 109/63; PULSE 77; RESP 16; TEMP 37; O2SAT 92
--- NOTE | 2019-03-28 07:46 | PN_ITS ---
Subjective: Patient was seen and examined. He appears more sedated today. His restraints was discontinued at about 4 AM. He received Ativan at 7 PM No other events. He is not eating much because of sedation. Remains on pureed diet. Patient had some visitors(friends) who gave extra information that patient apparently has sisters. If this proves to be true, will not need court appointed guardian Vitals/I&O's: Vital Signs Temp Pulse Resp BP Pulse Ox 98.6 F 77 16 109/63 92 03/28/19 06:00 03/28/19 06:00 03/28/19 06:00 03/28/19 06:00 03/28/19 06:00 Oxygen Flow Rate (L/min) 2 Oxygen Delivery Method Room Air Weight: 64.9 kg Body Mass Index (BMI) 18.8 Finger Stick Blood Glucose 89 Intake and Output for Last 24 Hours 03/26/19 03/27/19 03/28/19 23:59 23:59 23:59 Intake Total 1122 / 1122 / 62 Balance 112 / 1122 / 62 General: Cooperative, Lethargic HEENT: Atraumatic, PERRLA, EOMI, Normocephalic Oral: Moist Mucosa Neck: Supple Lungs: Clear to auscultation, Normal air movement Cardiovascular: Regular rate, Regular Rhythm, Normal S1, Normal S2, No murmurs Abdomen: Bowel Sounds Present, Soft, Non Tender, Non-Distended, No Hepato- splenomegaly Extremities: No edema Skin: No rashes, No breakdown Musculoskeletal: No Tenderness to Palpation of Joints or Extremities Lymphatic: No Cervical, Supraclavicular, or Inguinal Adenopathy Neurological: Cranial nerves II-XII grossly intact, Neuro grossly intact Psych/Mental Status: Normal Affect, Appropriate Current Medications Calamine/Phenol (Calmoseptine Ointment) 1 applic TOPICAL TID [facility]; Protocol Last Admin: 03/28/19 04:59 Dose: 1 applicatio Documented by: Dextrose (D50w Syringe) 0 gm IV X1 PRN; Protocol PRN Reason: Hypoglycemia Enoxaparin Sodium (Lovenox) 40 mg SC DAILY@1000 [facility] Last Admin: 03/27/19 09:07 Dose: 40 mg Documented by: Glucagon () 1 mg IM .X1 PRN PRN Reason: Hypoglycemia Sodium Chloride () 500 mls @ 999 mls/hr IV .Q31M ONE Last Infusion: 03/24/19 20:35 Dose: Infused Documented by: Sodium Chloride () 250 mls @ 15 mls/hr IV .[id number] PRN PRN Reason: SALINE FLUSH Thiamine HCl 200 mg/ Sodium (Chloride) 52 mls @ 200 mls/hr IV DAILY [facility] Last Infusion: 03/27/19 09:50 Dose: Infused Documented by: Sodium Chloride () 1,000 mls @ 125 mls/hr IV .Q8H [facility] Lorazepam (Ativan) 2 mg IV Q4H PRN PRN PRN Reason: AGITATION Last Admin: 03/28/19 07:21 Dose: 2 mg Documented by: Nicotine (Nicoderm Cq (Pbkc)) 21 mg TRANSDERM. DAILY [facility] Last Admin: 03/27/19 10:44 Dose: 21 mg Documented by: Nicotine Polacrilex (Rugby Nicotine (Bkc)) 2 mg PO Q2H PRN PRN PRN Reason: Nicotine Craving Nystatin (Nystatin) 500,000 unit PO 4X/DAY [facility] Last Admin: 03/27/19 21:35 Dose: Not Given Documented by: Quetiapine Fumarate (Seroquel) 50 mg PO BID [facility] Last Admin: 03/27/19 22:29 Dose: Not Given Documented by: Sodium Chloride () 10 - 40 ml IV UD PRN PRN Reason: SALINE FLUSH Last Admin: 03/28/19 07:21 Dose: 20 ml Documented by: Medical Necessity - Tobacco Use Smoking Status: Unknown if ever smoked Assessment/Plan 63-year-old with past medical history of Winkler's disease with chorea, with resultant debility, who is reportedly homeless, and has been wandering, admitted after being found unresponsive in a parking lot. 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 Patient is homeless. Status post multiple doses of Ativan, aggressive trying to get out of bed. In 4 point restraints; evaluated, sitter at bedside Unable to be evaluated by Mobile crisis Continue on Seroquel 100mg po twice daily, Ativan as needed Will limit use of Ativan to allow patient to be able to take in some nutrition Continue to monitor with up a sitter at bedside 2. Decision-making capacity-patient lacks the capacity to make medical decisions He is a fall risk Likely has cognitive impairment secondary to Winkler's disease with chorea No family support. Only contact is a friend. Unable to complete Mini-cog Discharge planning still in the works 3. DVT prophylaxis with Lovenox subcu 4. Disposition: Pending mobile crisis murrayal, court appointed guardianship Code Visit Inpatient E&M: 34554 Subs Hosp L2
[2019-03-28 08:46] VITALS: BP 107/72; PULSE 78; RESP 18; TEMP 37.4; O2SAT 95
[2019-03-28] MEDS: 0.9% Normal Saline 1,000 ML 125 ML IV ×3 (09:00→23:45)
[2019-03-28] MEDS: Enoxaparin 40 MG/0.4 ML Syringe SC (09:01)
[2019-03-28 14:45] VITALS: BP 133/82; PULSE 83; RESP 18; TEMP 37.2; O2SAT 93
[2019-03-28] MEDS: QUEtiapine 100 MG Tablet PO (19:15)
--- NOTE | 2019-03-28 19:39 | NURSING ---
Pt was eating applesauce for the first time, so seroquel was given early while pt awake and eating.
--- NOTE | 2019-03-28 20:08 | NURSING ---
This RN called Pt's friend Marianne for sisters phone number. Marianne stated that she called the oldest living sister, Maricarmen and left message for her to call her back. She will also relay message to call hospital in the morning. Marianne gave Tessa home number which may possibly not work any longer: [phone] and the cell phone: [phone]. According to Marianne there are 3 other sisters living aside from Maricarmen. The oldest sister and the mother have both from Huntingtons Disease.
[2019-03-28 21:26] VITALS: BP 132/61; PULSE 88; RESP 18; TEMP 37.3; O2SAT 97
[2019-03-29] VITALS (8 sets, daily range): BP systolic 124–153; BP diastolic 73–80; PULSE 64–86; RESP 16–18; TEMP 36.6–37.2; O2SAT 94–98
[2019-03-29] MEDS: Menthol/Lanolin/Calamine/Znox 113 GM Tube 1 APPLIC TOPICAL ×3 (05:08→21:27)
[2019-03-29] MEDS: LORazepam 2 MG/ML Syringe IV ×4 (07:03→20:24)
[2019-03-29] MEDS: 0.9% NaCl Peripheral Flush Adult/Peds IV ×3 (07:05→20:24)
--- NOTE | 2019-03-29 07:06 | NURSING ---
This RN pulled a 2mg vial of Ativan from the [facility] for pt primary nurse Aureliano Cooper RN. This RN witnessed Aureliano Cooper RN give pt the Ativan.
[2019-03-29] MEDS: 0.9% Normal Saline 1,000 ML 125 ML IV ×2 (07:10→23:05)
[2019-03-29] MEDS: Enoxaparin 40 MG/0.4 ML Syringe SC (09:08)
[2019-03-29] MEDS: QUEtiapine 100 MG Tablet PO ×2 (09:11→19:13)
--- NOTE | 2019-03-29 14:33 | PN_ITS ---
Subjective: Patient was found earlier on sleeping. He was given Ativan at the change of shift. He continues to be restless. A family friend came around yesterday and provided his sisters numbers. I called Maricarmen Busby - [phone]. She is the oldest of the remaining siblings. Patient apparently is not on good terms with older siblings. He is a wanderer and has been since their parents ; from when he was 21 + years of age. Maricarmen Busby took care of her older sister, who also of complications of Kortney's disease requiring long-term placement in a prison and PEG tube. Her mother who had Mountainair's disease bore 6 children and 2 of them including Jose Manuel has Mountainair disease. There, however has been more than 30 deaths in the mom's extended family from Kortney's disease. The siblings are not on good terms; some do not want to even be involved with this patient. She last saw this patient 10 years ago. However, she said that they are all of the opinion that if needed patient should be in a facility instead of wandering. Objective: Physical exam: General: Alert, Oriented x3, - - garbled speech, in 4 point soft restraints HEENT: Atraumatic, PERRLA, EOMI, Normocephalic, - - bad dentition, whitish coating of tongue Oral: Moist Mucosa Neck: Supple Lungs: Clear to auscultation, Normal air movement Cardiovascular: Regular rate, Regular Rhythm, Normal S1, Normal S2, No murmurs Abdomen: Bowel Sounds Present, Soft, Non Tender, Non-Distended Extremities: No edema Skin: No rashes, No breakdown Musculoskeletal: No Tenderness to Palpation of Joints or Extremities Lymphatic: No Cervical, Supraclavicular, or Inguinal Adenopathy Neurological: Cranial nerves II-XII grossly intact, Unsteady Gait, - - Chorea of both upper and lower extremities present. Psych/Mental Status: Normal Affect, Appropriate Vitals/I&O's: Vital Signs Temp Pulse Resp BP Pulse Ox 98.1 F 69 16 135/78 H 94 03/29/19 11:49 03/29/19 11:49 03/29/19 11:49 03/29/19 11:49 03/29/19 11:49 Oxygen Flow Rate (L/min) 2 Oxygen Delivery Method Room Air Weight: 64.9 kg Body Mass Index (BMI) 18.8 Finger Stick Blood Glucose 89 Intake and Output for Last 24 Hours 03/27/19 03/28/19 03/29/19 23:59 23:59 23:59 Intake Total 2567.75 / 2567.75 1029.08 / 1029.08 Balance 2567.75 / 2567.75 1029.08 / 1029.08 Current Medications Calamine/Phenol (Calmoseptine Ointment) 1 applic TOPICAL TID [facility]; Protocol Last Admin: 03/29/19 05:08 Dose: 1 applicatio Documented by: Dextrose (D50w Syringe) 0 gm IV X1 PRN; Protocol PRN Reason: Hypoglycemia Enoxaparin Sodium (Lovenox) 40 mg SC DAILY@1000 [facility] Last Admin: 03/29/19 09:08 Dose: 40 mg Documented by: Glucagon () 1 mg IM .X1 PRN PRN Reason: Hypoglycemia Sodium Chloride () 500 mls @ 999 mls/hr IV .Q31M ONE Last Infusion: 03/24/19 20:35 Dose: Infused Documented by: Sodium Chloride () 250 mls @ 15 mls/hr IV .[id number] PRN PRN Reason: SALINE FLUSH Thiamine HCl 200 mg/ Sodium (Chloride) 52 mls @ 200 mls/hr IV DAILY [facility] Last Infusion: 03/29/19 10:42 Dose: Infused Documented by: Sodium Chloride () 1,000 mls @ 125 mls/hr IV .Q8H [facility] Last Admin: 03/29/19 07:10 Dose: 125 mls/hr Documented by: Multivitamins 10 ml/ Sodium (Chloride) 1,010 mls @ 100 mls/hr IV .Q10H6M ONE Stop: 03/29/19 21:05 Last Admin: 03/29/19 11:46 Dose: 100 mls/hr Documented by: Lorazepam (Ativan) 2 mg IV Q4H PRN PRN PRN Reason: AGITATION Last Admin: 03/29/19 10:15 Dose: 2 mg Documented by: Nicotine (Nicoderm Cq (Pbkc)) 21 mg TRANSDERM. DAILY [facility] Last Admin: 03/29/19 09:12 Dose: 21 mg Documented by: Nicotine Polacrilex (Rugby Nicotine (Bkc)) 2 mg PO Q2H PRN PRN PRN Reason: Nicotine Craving Nystatin (Nystatin) 500,000 unit PO 4X/DAY [facility] Last Admin: 03/29/19 10:20 Dose: Not Given Documented by: Quetiapine Fumarate (Seroquel) 100 mg PO BID [facility] Last Admin: 03/29/19 09:11 Dose: 100 mg Documented by: Sodium Chloride () 10 - 40 ml IV UD PRN PRN Reason: SALINE FLUSH Last Admin: 03/29/19 10:17 Dose: 10 ml Documented by: Medical Necessity - Tobacco Use Smoking Status: Unknown if ever smoked Assessment/Plan Summary of care/Off service note: 63-year-old with past medical history of Mountainair's disease with chorea, with resultant debility, who is reportedly homeless, and has been wandering, admitted after being found unresponsive in a parking lot. Acute stroke is ruled out with negative MRI. Patient has been agitated on the floors and had to be physically and chemically sedated. He is been off physical restraints for 2 days. 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 Patient is homeless. Off restraints, on Ativan and Seroquel Continue to monitor with up a sitter at bedside 2. Decision-making capacity-patient lacks the capacity to make medical decisions He is a fall risk. Has cognitive impairment secondary to Kortney's disease with chorea and probably also from chronic alcohol use Unable to complete Mini-cog testing We will hold off on filling paperwork for court appointed guardian as patient has siblings who are his next of kin. 3. DVT prophylaxis with Lovenox subcu 4. Disposition: Social work updated, to pursue discharge planning with his siblings Code Visit Inpatient E&M: 60929 Subs Hosp L2
--- NOTE | 2019-03-29 22:00 | NURSING ---
Vital signs late due to patient uncooperative and heavy admission shortly after shift change.
[2019-03-30] MEDS: 0.9% NaCl Peripheral Flush Adult/Peds IV ×7 (00:20→21:52)
[2019-03-30] MEDS: LORazepam 2 MG/ML Syringe IV ×5 (00:22→21:53)
[2019-03-30 03:00] VITALS: BP 164/81; PULSE 88; RESP 18; TEMP 37; O2SAT 94
[2019-03-30 03:01] VITALS: O2SAT 94
[2019-03-30] MEDS: Menthol/Lanolin/Calamine/Znox 113 GM Tube 1 APPLIC TOPICAL ×3 (04:27→22:53)
[2019-03-30] MEDS: Haloperidol Lactate 5 MG/ML Vial 2 MG IM (04:37)
--- NOTE | 2019-03-30 04:56 | NURSING ---
Patient combative, hitting and kicking staff. Trying to get out of bed; pulled out IV in aggressive manner. [address] to [address] new IV in B/L arms without success. Dr. Abrams notified and asked if we could place IV in foot or ankle. Also asked MD for x1 dose of Ativan or Geodon IM until IV access could be regained due to patient being combative and fighting against staff. Orders received and placed by this RN. IM Haldol given in right thigh and IV accessed was gained in left distal ankle medially. Sitter at bedside.
[2019-03-30 08:20] VITALS: BP 151/81; PULSE 77; RESP 14; TEMP 36.3; O2SAT 93
[2019-03-30] MEDS: QUEtiapine 100 MG Tablet PO ×2 (08:31→22:52)
[2019-03-30] MEDS: 0.9% Normal Saline 1,000 ML 125 ML IV (08:31)
[2019-03-30] MEDS: Enoxaparin 40 MG/0.4 ML Syringe SC (08:31)
[2019-03-30] MEDS: NYSTATIN 500,000 UNIT/5 ML UDC 500000 UNIT PO ×3 (08:40→22:52)
--- NOTE | 2019-03-30 09:17 | EKG12_ITS ---
Test Reason : ROUTINE Blood Pressure : / mmHG Vent. Rate : 069 BPM Atrial Rate : 069 BPM P-R Int : 166 ms QRS Dur : 104 ms QT Int : 448 ms P-R-T Axes : 066 -13 -05 degrees QTc Int : 480 ms Normal sinus rhythm Moderate voltage criteria for LVH, may be normal variant Prolonged QT Abnormal ECG When compared with ECG of 26-MAR-2019 09:13, T wave inversion now evident in Inferior leads Confirmed by ROBINSON WOODS, ROHAN ([id number]), book or script editor SHELL RINCON ([id number]) on 04/01/2019 10:56:31 AM Referred By: Gerardo Abrams Confirmed By:ROHAN BOWERS MD
--- NOTE | 2019-03-30 09:39 | NURSING ---
received phone call from Evi Reyna [phone]. she asked update about patient and asked if any family had been to visit or agreed to help provide care for pt. she also stated that Gurpreet could come and stay with her again if needed, he has a home here because we don't want him locked up and he wouldn't want to be locked up. asked what she meant by locked up and she referred to psych facility. information passed along to CHARLETTE George and electrical discharge machine operator
[2019-03-30] MEDS: QUEtiapine 100 MG Tablet 150 MG PO (10:52)
--- NOTE | 2019-03-30 11:37 | PN_ITS ---
<Clif Blankenship - Last Filed: 03/30/19 14:00> Subjective: Confused, mumbling, incoherent. Writhing, but does not appear in distress. Noncombative. Ate very little this AM. Cannot feed himself. - Physical Exam General: Alert, Confused, Disoriented, - - frail HEENT: Atraumatic, PERRLA, EOMI, Normocephalic Neck: Supple, No JVD, Negative Carotid Bruits Lungs: Clear to auscultation, Normal air movement Cardiovascular: Regular rate, No murmurs Abdomen: Bowel Sounds Present, Soft, Non Tender Extremities: No edema, Capillary Refill Less than 3 Seconds Skin: No rashes, No breakdown Musculoskeletal: No Tenderness to Palpation of Joints or Extremities Neurological: Cranial nerves II-XII grossly intact Psych/Mental Status: Restless Vital Signs Temp Pulse Resp BP Pulse Ox 97.3 F L 77 14 151/81 H 93 03/30/19 08:20 03/30/19 08:20 03/30/19 08:20 03/30/19 08:20 03/30/19 08:20 Oxygen Flow Rate (L/min) 2 Oxygen Delivery Method Room Air Weight: 143 lb 1.28 oz Body Mass Index (BMI) 18.8 Finger Stick Blood Glucose 89 Intake and Output for Last 24 Hours 03/28/19 03/29/19 03/30/19 23:59 23:59 23:59 Intake Total 2567.75 / 2567.75 2844.50 / 2844.50 1221.67 / 1221.67 Balance 2567.75 / 2567.75 2844.50 / 2844.50 1221.67 / 1221.67 Medical Necessity - Tobacco Use Smoking Status: Unknown if ever smoked Assessment/Plan 1. 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 Not combative today but very restless and moaning. Avoid benzos if possible. Seroquel increased, will slightly decreased back with QTc mildly elevated: QTc is 480. Recheck in AM. Decrease dose if increased. He is A/Ox0 and unable to make his own medical decision or give informed consent. Family is planning to take full care of him at discharge. DC IV fluids. 2. Nicotine abuse - patch. DVT ppx: lovenox DC planning: DC to care of family in [facility]. This patient was seen by Clif Blankenship PA-C under the supervision of Dr. Huff. <Chencho Huff - Last Filed: 03/30/19 14:33> - Physical Exam Vital Signs Temp Pulse Resp BP Pulse Ox 97.3 F L 77 14 151/81 H 93 03/30/19 08:20 03/30/19 08:20 03/30/19 08:20 03/30/19 08:20 03/30/19 08:20 Oxygen Flow Rate (L/min) 2 Oxygen Delivery Method Room Air Weight: 64.9 kg Body Mass Index (BMI) 18.8 Finger Stick Blood Glucose 89 Intake and Output for Last 24 Hours 03/28/19 03/29/19 03/30/19 23:59 23:59 23:59 Intake Total 2567.75 / 2567.75 2844.50 / 2844.50 1273.67 / 1273.67 Balance 2567.75 / 2567.75 2844.50 / 2844.50 1273.67 / 1273.67 Assessment/Plan This patient was seen in conjunction with Clif Blankenship PA-C . I have independently interviewed and examined the patient and reviewed pertinent historical, laboratory, and other data. Please refer to Clif Blankenship PA-C note for details of this patient's presentation, findings, and recommendations. I have reviewed Clif Blankenship PA-C note and concur with documented findings. In brief, patient is a 63-year-old gentleman with history of Katie's chorea apparently homeless who was found unresponsive at the parking lot Physical Examination: GENERAL: Frail looking HEENT: Atraumatic; EYES; Anicteric NECK; supple, normal thyroid, RESPIRATORY: Diminished to auscultation, CARDIOVASCULAR: Regular S1 S2, GI: soft, non-tender, PSYCH; flat affect Assessment: 1. 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 Tobacco dependence 3. DVT prophylaxis SC Lovenox Recommendations: 1. I have discussed the results of my overview and impressions with the patient 2. Options for management were reviewed Code Visit Inpatient E&M: 27324 Subs Hosp L2
--- NOTE | 2019-03-30 12:32 | CASEMGMT ---
CHARLETTE received a call from Evi Reyna from [employer], [place]. She asked if patient's family got in touch with the hospital. She said she ended up finding them through social media. CHARLETTE told her the physician spoke with patient's sister. She said she and her talked and they are willing to take patient and care for him. CHARLETTE told her he is not able to care for himself so they will have to do everything for patient. SW explained it takes 2 people to help him walk. She said she understands, but they are willing to do it. She said they know he would never want to go to a snf so they will take care of him at their home. She asked if SW could ask patient if he wants to go home with them. She also asked that the SW call Morris, her . CHARLETTE told her SW will have to check on a few things and will get back with her. CHARLETTE called Morris and he said that they are willing to take patient if he wants to come home with them. He asked that SW ask patient if he wants to go home with them. CHARLETTE called patient's sister, Maricarmen. She told SW some of the history with patient. She said he is a heavy drinker and smoker. CHARLETTE explained to her that there is a couple in [place] that have taken patient in before and they are willing to take patient again. CHARLETTE asked her if she and her sisters would be in agreement with this plan. She expressed that she hopes they know what they are getting into as it is a lot of work. She would be ok with this and she will contact the other siblings to see if they are in agreement as well. CHARLETTE went to patient's room and he was awake. He was moving about in the bed. He kept asking for his wallet. CHARLETTE told him that we have his wallet and it is safe. SW asked him if he knew who Morris and Evi were and he sounded as though he said yes. SW asked him if he would like to go stay with them. Patient continued to perseverate on his wallet. SW asked him if he could shake his head yes or no to the question. He was saying something which SW could not understand. CHARLETTE will try and get Evi and/or Morris on the phone with patient. CHARLETTE received a voice mail from patient's sister Maricarmen. She said she spoke with the family members and the consensus is that if that is were patient wants to go they don't want to go against him. She said she would not want the state to institutionalize him if there is someone out there that is willing to care for him. She felt this may make him happier. CHARLETTE called Evi caban and let her know this information. CHARLETTE told her SW tried to ask patient, but right now he is worried about his wallet and will not really answer SW. CHARLETTE told her SW will go back in, in a little bit once he is awake and put him on the phone with her or her . She said they are going to need some equipment in the home. She said they will need a hospital bed, wheelchair, and bedside commode. She also asked about having an aide come out and help her with bathing him etc. She said she has a call out to his doctor's office. She sees the same doctor he saw and he asks her about patient all of the time. CHARLETTE asked her about medical equipment companies in her area. She mentioned [facility]. Their address is [address] [place] [id number]. CHARLETTE called [facility] and they are not doing hospital beds right now. CHARLETTE used the internet to find a few other places. CHARLETTE called [facility] and they deliver to this address. They cannot deliver any equipment until it is approved by insurance. This can take a couple of days. The person that CHARLETTE will need to talk with is Chitra. [facility] phone: [phone] and fax is [phone]. SW will obtain prescriptions for wheelchair, bedside commode, and hospital bed. Doris DAVIS MSW
--- NOTE | 2019-03-30 13:08 | CASEMGMT ---
CHARLETTE called the physician's office where patient was seen most recently. CHARLETTE left a message requesting a return call regarding possible home health for patient. CHARLETTE called [facility] for the region where patient will be staying. A message indicating they cannot take the call due to high call volume and to leave name and number on voice mail. The message then came across indicating the mailbox is full. Doris DWYER
--- NOTE | 2019-03-30 13:43 | CASEMGMT ---
CHARLETTE reviewed internet for further services for seniors in [place]. CHARLETTE found the [facility]. They have services similar to [facility] in [place]. CHARLETTE called and Evi would just need to call and let them know she is interested in services. A nurse would then run through some questions to help determine what if any services patient may be eligible for. CHARLETTE received a call from Chitra with [facility] [facility]. She said she was told she was going to get some information for some equipment, but has not received anything yet. CHARLETTE told her SW is waiting on the doctor to put in his documentation indicating why the patient needs the equipment. She told SW to go ahead and send whatever information CHARLETTE has and she can send the Certification for medical necessity. CHARLETTE faxed information. Doris DAVIS MSW
--- NOTE | 2019-03-30 15:10 | CASEMGMT ---
CHARLETTE called patient's friend Morris on the room phone. AZAEL assisted and held the phone to patient's ear. Morris asked patient if he wanted him to come and get him and patient said yes please. CHARLETTE let Morris know that CHARLETTE is working on setting up some equipment for their home. He thanked CHARLETTE for calling him and allowing him to talk with patient. CHARLETTE is waiting on approval for home equipment. CHARLETTE also has a call out to the doctor's office where patient was a patient to see if they would be able to assist with home health. Doris DAVIS INTEGRATION TECHNICIAN
[2019-03-30] MEDS: Haloperidol Lactate 5 MG/ML Vial 1 MG IV (15:37)
[2019-03-30 17:00] VITALS: BP 141/70; PULSE 69; RESP 18; TEMP 37.2; O2SAT 99
[2019-03-30 21:40] VITALS: BP 133/74; PULSE 56; RESP 18; TEMP 36.8; O2SAT 98
[2019-03-30] MEDS: QUEtiapine 25 MG Tablet PO (22:52)
[2019-03-31 02:50] VITALS: BP 133/73; PULSE 56; RESP 18; TEMP 36.5; O2SAT 99
[2019-03-31] MEDS: LORazepam 2 MG/ML Syringe IV ×3 (02:52→23:02)
[2019-03-31] MEDS: 0.9% NaCl Peripheral Flush Adult/Peds IV ×3 (02:52→23:01)
[2019-03-31] MEDS: Haloperidol Lactate 5 MG/ML Vial IM (05:06)
--- NOTE | 2019-03-31 05:55 | EKG12_ITS ---
Test Reason : AM Blood Pressure : / mmHG Vent. Rate : 063 BPM Atrial Rate : 063 BPM P-R Int : 168 ms QRS Dur : 098 ms QT Int : 440 ms P-R-T Axes : 039 -18 -02 degrees QTc Int : 450 ms Normal sinus rhythm Moderate voltage criteria for LVH, may be normal variant Borderline ECG When compared with ECG of 30-MAR-2019 10:13, MANUAL COMPARISON REQUIRED, DATA IS UNCONFIRMED Confirmed by KADI WOOSD, LUIS A ([id number]), copy editor SHELL RINCON ([id number]) on 04/03/2019 10:36:40 A M Referred By: Gerardo Abrams Confirmed By:MICHAEL WALLIS MD
[2019-03-31 09:30] VITALS: BP 143/73; PULSE 89; RESP 15; TEMP 36.8; O2SAT 94
[2019-03-31] MEDS: Enoxaparin 40 MG/0.4 ML Syringe SC (09:42)
[2019-03-31] MEDS: QUEtiapine 25 MG Tablet PO ×2 (09:42→21:04)
[2019-03-31] MEDS: NYSTATIN 500,000 UNIT/5 ML UDC 500000 UNIT PO ×3 (09:42→19:00)
[2019-03-31] MEDS: QUEtiapine 100 MG Tablet PO ×2 (09:42→21:04)
--- NOTE | 2019-03-31 10:15 | CASEMGMT ---
CHARLETTE received fax from [facility] in [place]. PA will need to sign the Certificate of Medical Necessity for each of the pieces of equipment. It will also need to be documented why patient needs the equipment. CHARLETTE notified ERNIE Menezes. Doris DAVIS MSW
--- NOTE | 2019-03-31 12:01 | PCM.PROGNOTE ---
<Clif Blankenship - Last Filed: 03/31/19 12:16> Subjective: No complaints. Confused. Writhing, continuous movements, difficulty staying in bed. cannot ambulate on his own without support. - Physical Exam General: Alert, No apparent distress, Confused, Disoriented HEENT: Atraumatic, PERRLA, EOMI, Normocephalic Neck: Supple, No JVD, Negative Carotid Bruits Lungs: Clear to auscultation, Normal air movement Cardiovascular: Regular rate, No murmurs Abdomen: Bowel Sounds Present, Soft, Non Tender Extremities: No edema, Capillary Refill Less than 3 Seconds Skin: No rashes, No breakdown Musculoskeletal: No Tenderness to Palpation of Joints or Extremities Neurological: Cranial nerves II-XII grossly intact Psych/Mental Status: Agitated Vital Signs Temp Pulse Resp BP Pulse Ox 98.2 F 89 15 143/73 H 94 03/31/19 09:30 03/31/19 09:30 03/31/19 09:30 03/31/19 09:30 03/31/19 09:30 Oxygen Flow Rate (L/min) 2 Oxygen Delivery Method Room Air Weight: 143 lb 1.28 oz Body Mass Index (BMI) 18.8 Finger Stick Blood Glucose 89 Intake and Output for Last 24 Hours 03/29/19 03/30/19 03/31/19 23:59 23:59 23:59 Intake Total 2844.50 / 2844.50 1811.17 / 1871.17 120 / 120 Balance 2844.50 / 2844.50 1811.17 / 1871.17 120 / 120 Medical Necessity - Tobacco Use Smoking Status: Unknown if ever smoked Assessment/Plan 1. 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 Not combative today but very restless and moaning. Avoid benzos if possible. Seroquel increased, will slightly decreased back with QTc mildly elevated: QTc is 480. Recheck in AM. Decrease dose if increased. He is A/Ox0 and unable to make his own medical decision or give informed consent. Family is planning to take full care of him at discharge. DC IV fluids. 2. Nicotine abuse - patch. DVT ppx: lovenox DC planning: DC to care of family in [place], [facility]. Note: This patient will require the following at discharge: 1. Hospital bed : He needs frequent repositioning as he has Katie disease, he also needs to be able to have the head elevated greater than 31 degrees to due high risk of aspiration. 2. 3 in one Bed side commode: He is confined to the first floor of the house. There is no bathroom on the first floor. He cannot ambulate or use stairs. 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 3. Wheelchair : again, he is unable to support himself or walk on his own due to the severity of the Pawnee disease. He is willing and able to self propel himself in order to participate in ADLs at the home. He requires a light weight wheelchair due to his decreased strength, again due to his Katie disease. This patient was seen by Clif Blankenship PA-C under the supervision of Dr. Huff. <Chencho Huff - Last Filed: 03/31/19 12:48> - Physical Exam Vital Signs Temp Pulse Resp BP Pulse Ox 98.2 F 89 15 143/73 H 94 03/31/19 09:30 03/31/19 09:30 03/31/19 09:30 03/31/19 09:30 03/31/19 09:30 Oxygen Flow Rate (L/min) 2 Oxygen Delivery Method Room Air Weight: 64.9 kg Body Mass Index (BMI) 18.8 Finger Stick Blood Glucose 89 Intake and Output for Last 24 Hours 03/29/19 03/30/19 03/31/19 23:59 23:59 23:59 Intake Total 2844.50 / 2844.50 1811.17 / 1871.17 120 / 120 Balance 2844.50 / 2844.50 1811.17 / 1871.17 120 / 120 Assessment/Plan This patient was seen in conjunction with Clif Blankenship PA-C . I have independently interviewed and examined the patient and reviewed pertinent historical, laboratory, and other data. Please refer to Clif Blankenship PA-C note for details of this patient's presentation, findings, and recommendations. I have reviewed Clif Blankenship PA-C note and concur with documented findings. In brief, patient is a 63-year-old gentleman with history of Pawnee's chorea apparently homeless who was found unresponsive at the parking lot Physical Examination: 03/31/2019: No change in patient current clinical condition. professional services manager currently working on patient disposition with regards to providing hospital bed as well as a wheelchair GENERAL: Frail looking HEENT: Atraumatic; EYES; Anicteric NECK; supple, normal thyroid, RESPIRATORY: Diminished to auscultation, CARDIOVASCULAR: Regular S1 S2, GI: soft, non-tender, PSYCH; flat affect Assessment: 1. 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 Tobacco dependence 3. DVT prophylaxis SC Lovenox Recommendations: 1. I have discussed the results of my overview and impressions with the patient 2. Options for management were reviewed Code Visit Inpatient E&M: 13613 Subs Hosp L2
--- NOTE | 2019-03-31 12:50 | CASEMGMT ---
Received fax from [facility] [place] [employer] [facility]. SW completed all necessary paperwork and PA completed needed documentation. All information was faxed to [facility] [place]. CHARLETTE called Evi Reyna to update her on equipment. However, there was no answer so CHARLETTE left a message. Doris DAVIS MSW
--- NOTE | 2019-03-31 13:20 | CASEMGMT ---
CHARLETTE called [facility] and spoke with a nurse who said the physician would need to see the patient before he would okay home health. CHARLETTE then spoke with the clinical data research and scheduled an appt for patient for SaturdayApr 10 at 1030a. CHARLETTE will notify Evi. Doris DWYER
--- NOTE | 2019-03-31 14:49 | CASEMGMT ---
CHARLETTE received a return call from Evi. CHARLETTE told her about the equipment and the appointment next Saturday. CHARLETTE told her CHARLETTE cannot get home health as he has to have a primary care doctor and per the doctor's office they want to see him before they would approve home health. She said she will call and see if she can get him in sooner. CHARLETTE also told her about the programs at [facility] and that SW was told she would just need to call and let them know she is interested and they would have her talk with a nurse to see if he qualifies. CHARLETTE told her that he may need to use the bathroom on the way back down to [place] and he will need assist. CHARLETTE also told her that he may have a diaper on also. CHARLETTE told her that it is hard to tell how much he can do for himself as he has been on medication while here that has kept him pretty calm. CHARLETTE told her that if the equipment is approved tomorrow then they will likely want to discharge him. She said she or her would come and get him or Cortes may be able to assist. Doris DAVIS MSW
[2019-03-31] MEDS: Menthol/Lanolin/Calamine/Znox 113 GM Tube 1 APPLIC TOPICAL ×2 (15:48→21:04)
[2019-03-31 15:53] VITALS: BP 149/82; PULSE 71; RESP 14; TEMP 36.6; O2SAT 98
[2019-03-31 21:01] VITALS: BP 146/84; PULSE 82; RESP 17; TEMP 37; O2SAT 97
[2019-03-31 22:12] LABS: Anion Gap 6 (5-15); BUN 11 mg/dL (7-18); BUN/Creat Ratio 16.2 RATIO (10-20); Calcium,Total 8.9 mg/dL (8.5-10.1); Chloride 107 mmol/L (98-107); Creatinine, Serum 0.68 mg/dL (0.70-1.30); EST Glomerular Filtration Rate 126 mL/min (>60); Est Glom Filt Rate - Afr Amer 152 mL/min (>60); Estimated Creatinine Clearance 103.39 ml/min; Glucose 97 mg/dL (74-106); Potassium 3.3 mmol/L (3.5-5.1); Sodium Level 143 mmol/L (136-145)
[2019-04-01 03:00] VITALS: BP 124/86; PULSE 64; RESP 16; TEMP 36.7; O2SAT 97
[2019-04-01] MEDS: Menthol/Lanolin/Calamine/Znox 113 GM Tube 1 APPLIC TOPICAL ×3 (05:01→21:32)
[2019-04-01 10:01] VITALS: BP 153/82; PULSE 80; RESP 16; TEMP 36.7; O2SAT 95
[2019-04-01] MEDS: Enoxaparin 40 MG/0.4 ML Syringe SC (10:06)
[2019-04-01] MEDS: QUEtiapine 100 MG Tablet PO ×2 (10:07→21:31)
[2019-04-01] MEDS: QUEtiapine 25 MG Tablet PO ×2 (10:07→21:32)
[2019-04-01] MEDS: NYSTATIN 500,000 UNIT/5 ML UDC 500000 UNIT PO ×3 (10:07→18:36)
--- NOTE | 2019-04-01 10:43 | CASEMGMT ---
SW received a voice mail from patient's sister Maricarmen. SW called her back. She said she spoke with ERNIE Menezes and she helped ease her mind. She said that a family member in [place] called her last night and made her second guess her decision to let patient go with these people. She expressed what her concerns were after talking with the family member. CHARLETTE explained to her that we do not feel this couple is after patient's money and they truly seem to have his best interest in mind. SW let her know equipment has been ordered and he already has an appt with a doctor he was seeing in [place] before he left. Await approval of equipment. Doris DAVIS MSW
--- NOTE | 2019-04-01 11:58 | DCINST_ITS ---
- Discharge Diagnoses Current Active Problems: Current Active and Chronic Problems Katie's disease (Chronic) You will use the following diet at home:: No restrictions Your food should be the consistency of: Puree Your liquids should be the consistency of: [place] Thick Discharge Activity: May Not Drive Additional Instructions: Continue PT OT and ST with home health care Allergies/Adverse Reactions: Allergies No Known Allergies Allergy (Verified 12/30/14 10:59) Medications to take at Discharge Quetiapine Fumarate [Seroquel] 25 mg PO BID #60 tab 04/01/19 Quetiapine Fumarate [Seroquel] 100 mg PO BID #60 tab 04/01/19 The following prescriptions were given: Quetiapine Fumarate [Seroquel] 100 mg PO BID #60 tab Prescription Printed Quetiapine Fumarate [Seroquel] 25 mg PO BID #60 tab Prescription Printed Primary Care Physician: Care Physician,No Primary [Primary Care Provider] - Please follow up with your Primary Care Physician in: 1 week Test Results: Test results from this visit will be discussed in further detail at your follow- up appointment, if applicable. Proposed Discharge Date: 04/01/19
--- NOTE | 2019-04-01 12:51 | PHA.DC.MR ---
Pharmacy Service has performed discharge medication reconciliation for this patient. Home Medications Quetiapine Fumarate [Seroquel] 25 mg PO BID #60 tab 04/01/19 Quetiapine Fumarate [Seroquel] 100 mg PO BID #60 tab 04/01/19 The patient's discharge medication list was reviewed for discrepancies and discrepancies were resolved.
--- NOTE | 2019-04-01 13:20 | PN_ITS ---
<Clif Blankenship - Last Filed: 04/01/19 13:20> Subjective: Spoke to his sister Maricarmen this AM about the plan for him to be discharged into the multimedia technician care of friends. Explained that I wrote prescriptions for home medical equipment and that he can arrange home health care through a PCP. She seemed comforted by the ability to receive these services going forward. The patient himself is more lucid today. Speech is still slurred/muffled, however he is understandable and can have a conversation. He has no complaints today. He is in good spirits and sitting up in the chair with little tremor. - Physical Exam General: Alert, Cooperative, Confused HEENT: Atraumatic, PERRLA, EOMI, Normocephalic Neck: Supple, No JVD, Negative Carotid Bruits Lungs: Clear to auscultation, Normal air movement Cardiovascular: Regular rate, No murmurs Abdomen: Bowel Sounds Present, Soft, Non Tender Extremities: No edema, Capillary Refill Less than 3 Seconds Skin: No rashes, No breakdown Musculoskeletal: No Tenderness to Palpation of Joints or Extremities, Cachexia Neurological: Cranial nerves II-XII grossly intact Psych/Mental Status: Appropriate Vital Signs Temp Pulse Resp BP Pulse Ox 98.1 F 80 16 153/82 H 95 04/01/19 10:01 04/01/19 10:01 04/01/19 10:01 04/01/19 10:01 04/01/19 10:01 Oxygen Flow Rate (L/min) 2 Oxygen Delivery Method Room Air Weight: 143 lb 1.28 oz Body Mass Index (BMI) 18.8 Finger Stick Blood Glucose 89 Intake and Output for Last 24 Hours 03/30/19 03/31/19 04/01/19 23:59 23:59 23:59 Intake Total 1810. / 1870.17 480 / 480 260 / 260 Balance 181.1870.17 480 / 480 260 / 260 Laboratory Tests Past 24 Hrs 03/31/19 21:45 Sodium 143 Potassium 3.3 L Chloride 107 Carbon Dioxide 30.0 Anion Gap 6 BUN 11 Creatinine 0.68 L Estim Creat Clear Calc 103.39 Est GFR (MDRD) Af Amer 152 Est GFR (MDRD) Non-Af 126 BUN/Creatinine Ratio 16.2 Glucose 97 Calcium 8.9 Magnesium 2.0 Medical Necessity - Tobacco Use Smoking Status: Unknown if ever smoked Assessment/Plan 1. 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 mentation much better today. Continue seroquel as ordered. 2. Nicotine abuse - patch. DVT ppx: lovenox DC planning: DC to care of family in [place], DME ordered as per yesterdays note - requirements documented. Possibly tomorrow. Sister is in agreement with plan per my discussion with her this AM. This patient was seen by Clif Blankenship PA-C under the supervision of Dr. Huff. <Chencho Huff - Last Filed: 04/01/19 14:08> - Physical Exam Vital Signs Temp Pulse Resp BP Pulse Ox 98.1 F 80 16 153/82 H 95 04/01/19 10:01 04/01/19 10:01 04/01/19 10:01 04/01/19 10:01 04/01/19 10:01 Oxygen Flow Rate (L/min) 2 Oxygen Delivery Method Room Air Weight: 64.9 kg Body Mass Index (BMI) 18.8 Finger Stick Blood Glucose 89 Intake and Output for Last 24 Hours 03/30/19 03/31/19 04/01/19 23:59 23:59 23:59 Intake Total 1811.17 / 1871.17 480 / 480 260 / 260 Balance 1811.17 / 1871.17 480 / 480 260 / 260 Laboratory Tests Past 24 Hrs 03/31/19 21:45 Sodium 143 Potassium 3.3 L Chloride 107 Carbon Dioxide 30.0 Anion Gap 6 BUN 11 Creatinine 0.68 L Estim Creat Clear Calc 103.39 Est GFR (MDRD) Af Amer 152 Est GFR (MDRD) Non-Af 126 BUN/Creatinine Ratio 16.2 Glucose 97 Calcium 8.9 Magnesium 2.0 Assessment/Plan This patient was seen in conjunction with Clif Blankenship PA-C . I have independently interviewed and examined the patient and reviewed pertinent historical, laboratory, and other data. Please refer to Clif Blankenship PA-C note for details of this patient's presentation, findings, and recommendations. I have reviewed Clif Blankenship PA-C note and concur with documented findings. In brief, patient is a 63-year-old gentleman with history of Katie's chorea apparently homeless who was found unresponsive at the parking lot Physical Examination: 03/31/2019: No change in patient current clinical condition. vice president client services currently working on patient disposition with regards to providing hospital bed as well as a wheelchair 03/31/2019; awaiting for transfer to [place] GENERAL: Frail looking HEENT: Atraumatic; EYES; Anicteric NECK; supple, normal thyroid, RESPIRATORY: Diminished to auscultation, CARDIOVASCULAR: Regular S1 S2, GI: soft, non-tender, PSYCH; flat affect Assessment: 1. Physical debility secondary to advanced [place]'s chorea 2. Tobacco dependence 3. DVT prophylaxis SC Lovenox Recommendations: 1. I have discussed the results of my overview and impressions with the patient 2. Options for management were reviewed Code Visit Inpatient E&M: 61142 Subs Hosp L2
--- NOTE | 2019-04-01 14:05 | CASEMGMT ---
CHARLETTE spoke with Chitra at [facility]. She said she has not heard from insurance yet. She will give them a call to see where they are with things. CHARLETTE gave her Evi's information so she can call and work out delivery details when everything is ready. CHARLETTE called Evi and let her know Chitra will be calling her to discuss a plan. CHARLETTE told her that it looks like we will need to plan for tomorrow. She will see if Morris can pick him up or if Cortes will bring patient. CHARLETTE told her patient was asking about Morris. She said she will message him and let him know and maybe he will come and get patient. She will let SW know. CHARLETTE spoke with patient. CHARLETTE introduced self and role at [facility] as he is much more alert today. CHARLETTE let him know we are waiting on equipment to get approved so he can go home with Morris and Evi. CHARLETTE told him this probably won't be until tomorrow. He was speaking a little clearer today. He told the aide that she is stuck with him for another day. Doris DAVIS MSW
--- NOTE | 2019-04-01 15:10 | CASEMGMT ---
CHARLETTE received a call from Chitra at [facility]. She said she spoke with insurance and they did not see that she marked this case urgent. She said she will likely have an answer tomorrow so delivery would be Saturday. She apologized for the delay. CHARLETTE called Evi and explained situation. She said they could manage without the equipment until Saturday. She knows how patient is when he wants to go. She will check with Morris to see if he can spanish moss picker patient and if he cannot she will check with [facility]. She will get back to CHARLETTE. Doris DAVIS MSW
--- NOTE | 2019-04-01 15:38 | CASEMGMT ---
CHARLETTE received a call from Evi. She said Morris will be up to get patient tomorrow. She then said she was going to call patient. Doris DAVIS MSW
[2019-04-01 16:26] VITALS: BP 145/82; PULSE 98; RESP 18; TEMP 36.7; O2SAT 96
[2019-04-01 21:42] VITALS: BP 143/102; PULSE 70; RESP 18; TEMP 36.4; O2SAT 93
[2019-04-02 06:30] VITALS: BP 138/85; PULSE 80; RESP 17; TEMP 36.8; O2SAT 100
[2019-04-02] MEDS: Menthol/Lanolin/Calamine/Znox 113 GM Tube 1 APPLIC TOPICAL (06:32)
[2019-04-02] MEDS: NYSTATIN 500,000 UNIT/5 ML UDC 500000 UNIT PO (09:12)
[2019-04-02] MEDS: Enoxaparin 40 MG/0.4 ML Syringe SC (09:13)
[2019-04-02 10:00] VITALS: BP 140/78; PULSE 79; RESP 18; TEMP 36.6; O2SAT 99
[2019-04-02] MEDS: QUEtiapine 25 MG Tablet PO (10:06)
[2019-04-02] MEDS: QUEtiapine 100 MG Tablet PO (10:06)
--- NOTE | 2019-04-02 10:45 | CASEMGMT ---
CHARLETTE spoke with Evi this am and she said Morris is on his way and should be here anytime now. CHARLETTE spoke with patient. Introduced self again. CHARLETTE told him that we were going to be sending him to a detention, but then Evi and Morris said they wanted to take him home. They knew he did not want to go to a detention so they graciously said they would take him into their home. CHARLETTE told him that he is not going to be able to roam anymore as his Katie's is getting worse. SW told him it is important that he listen and cooperate with them. Morris arrived at [facility] with another individual. Patient was very excited to see Morris. SW spoke with Morris. SW let him know about patient's appt SaturdayApr 10. CHARLETTE gave him the paperwork for the [facility], the [employer] Guide to [place]'s [employer], a copy of patient's Medicaid card, two notes with the appt time, and the name, number and address of the medical equipment company that will be supplying the medical equipment. CHARLETTE thanked him for coming to get patient. SW commended he and his for their generosity. medical equipment will be delivered Saturday by [facility]. (hospital bed, 3 in 1 commode, and wheelchair). Patient has a 's appt SaturdayApr [address] Messer at [facility]. Doris DWYER
--- NOTE | 2019-04-02 13:42 | PCM.DC.SUM ---
<Colleen Holley - Last Filed: 04/02/19 13:49> Discharge Date and Diagnosis Date of Admission: 03/24/19 Date of Discharge: 04/02/19 - Primary Discharge Diagnosis 1. 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 Tobacco dependence - Secondary Discharge Diagnosis Chronic Problems Dupont's disease (Chronic) Adult failure to thrive (Chronic) Hospital Course and Treatment Imaging Results: Diagnostic Data Brain CT 03/24/19 19:34 IMPRESSION: No acute intracranial abnormality. Electronically Signed: Luis Eduardo Newman, at 19:53 EDT Tel , Service support , ADDENDUM: 03/24/192000 IMPRESSION: No acute intracranial abnormality. N.B. : The above information has been verbally conveyed by Luis Eduardo Newman to Dr. Meir Arenas MD, on 03/24/2019 19:54:46 (ET). Electronically Signed: Luis Eduardo Newman, at 19:53 EDT Tel , Service support , Chest X-Ray 03/24/19 19:34 IMPRESSION: Trace pulmonary edema. No consolidation. Electronically Signed: Luis Eduardo Newman, at 20:06 EDT Tel , Service support , Head/Neck CTA 03/24/19 19:51 IMPRESSION: No CTA evidence of significant intracranial arterial pathology. No CTA evidence of significant arterial pathology in the neck. NASCET criteria was used. Electronically Signed: Дмитрий Glynn MD at 21:01 EDT Tel , Service support , Brain MRI 03/25/19 09:00 IMPRESSION: No acute intracranial abnormality. Electronically Signed: Eren Merlos MD at 16:01 EDT Tel , Service support , Consultations 03/26/19 20:04 Consult: Mental Health/Crisis Routine Reason for consult?: Mental crisis eval Date Notified:: 03/26/19 Time notified:: 20:04 Dr. Lowery- Neurology Operations: None Procedures: None Summary of Care Provided: The patient is a 63 year old M admitted 03/24/2019 following being found unresponsive in a parking lot. 1. Physical debility secondary to advanced Katie's chorea-continue current Seroquel regimen at discharge. Imaging as noted above without acute process. Unable to make appropriate medical decisions for himself. Patient will be discharged home with home health and family to take full care of him. He declined SNF and friends willing to care for patient. 2. Tobacco dependence-encouraged cessation. General: Alert, No apparent distress, cooperative HEENT: Atraumatic, PERRLA, EOMI, Normocephalic Neck: Supple, No JVD, Negative Carotid Bruits Lungs: Clear to auscultation, Normal air movement Cardiovascular: Regular rate, No murmurs Abdomen: Bowel Sounds Present, Soft, Non Tender Extremities: No edema, Capillary Refill Less than 3 Seconds Skin: No rashes, No breakdown Musculoskeletal: No Tenderness to Palpation of Joints or Extremities Neurological: Cranial nerves II-XII grossly intact Psych/Mental Status: Appropriate Patient seen and examined prior to discharge. Physical assessment as noted above. Patient is stable for discharge with follow up recommendations as noted above. This patient was seen by DANIELA Kee under the supervision of Dr. Huff. - Physical Exam Vital Signs Temp Pulse Resp BP Pulse Ox 97.9 F 79 18 140/78 H 99 04/02/19 10:00 04/02/19 10:00 04/02/19 10:00 04/02/19 10:04/02/19 10:00 Oxygen Flow Rate (L/min) 2 Oxygen Delivery Method Room Air Weight: 143 lb 1.28 oz Body Mass Index (BMI) 18.8 Finger Stick Blood Glucose 89 Intake and Output for Last 24 Hours 03/31/19 04/01/19 04/02/19 23:59 23:59 23:59 Intake Total 480 / 480 560 / 560 Balance 480 / 480 560 / 560 Discharge Diet: No Restrictions Discharge Activity: May Not Drive Call your doctor if you observe: Shortness of breath, Dizziness, Fainting spells, Chest pain Home Medications: Medications to take at Discharge Quetiapine Fumarate [Seroquel] 25 mg PO BID #60 tab 04/01/19 Quetiapine Fumarate [Seroquel] 100 mg PO BID #60 tab 04/01/19 Following Prescrptions Were Given to Patient: Quetiapine Fumarate [Seroquel] 100 mg PO BID #60 tab Prescription Printed Quetiapine Fumarate [Seroquel] 25 mg PO BID #60 tab Prescription Printed Primary Care Physician: Care Physician,No Primary [Primary Care Provider] - Please follow up with your Primary Care Physician in: 1 week Disposition: Home with Home Health Minutes spent on discharge:: 35 Patient Condition:: Stable Medical Necessity - Tobacco Use Smoking Status: Unknown if ever smoked Meaningful Use Info Meaningful Use Diagnoses (Choose all that apply): None applicable <Chencho Huff - Last Filed: 04/02/19 13:51> Discharge Date and Diagnosis - Secondary Discharge Diagnosis Chronic Problems Dupont's disease (Chronic) Adult failure to thrive (Chronic) Hospital Course and Treatment Consultations 03/26/19 20:04 Consult: Mental Health/Crisis Routine Reason for consult?: Mental crisis eval Date Notified:: 03/26/19 Time notified:: 20:04 Summary of Care Provided: This patient was seen in conjunction with DANIELA Kee . I have independently interviewed and examined the patient and reviewed pertinent historical, laboratory, and other data. Please refer to DANIELA Kee note for details of this patient's presentation, findings, and recommendations. I have reviewed DANIELA Kee note and concur with documented findings. In brief, patient is a 63-year-old gentleman with history of Dupont's chorea apparently homeless who was found unresponsive at the parking lot Physical Examination: Assessment: 1. 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 Tobacco dependence 3. DVT prophylaxis [facility] Hospital course: As documented above - Physical Exam Vital Signs Temp Pulse Resp BP Pulse Ox 97.9 F 79 18 140/78 H 99 04/02/19 10:00 04/02/19 10:00 04/02/19 10:00 04/02/19 10:00 04/02/19 10:00 Oxygen Flow Rate (L/min) 2 Oxygen Delivery Method Room Air Weight: 64.9 kg Body Mass Index (BMI) 18.8 Finger Stick Blood Glucose 89 Intake and Output for Last 24 Hours 03/31/19 04/01/19 04/02/19 23:59 23:59 23:59 Intake Total 480 / 480 560 / 560 Balance 480 / 480 560 / 560 Code Visit Inpatient E&M: 37477 Disch Hosp
== END 2019-04-02 10:27 | disposition home or self-care (01) | DRG 57 ==
LOC: ED 22:52 → PCU 03-25 05:30
PROVIDERS: Internal Medicine; Physician Assistant; Admitting Provider Hospitalist; Emergency Provider Emergency Medicine; Referring Provider Hospitalist; Visit Provider Internal Medicine
DX: G10 Huntington's disease (principal); Z68.1 Body mass index [BMI] 19.9 or less, adult; E44.0 Moderate protein-calorie malnutrition; R62.7 Adult failure to thrive; F17.200 Nicotine dependence, unspecified, uncomplicated; Z78.1 Physical restraint status; R41.89 Other symptoms and signs involving cognitive functions and awareness
CPT/HCPCS: 36415; 70450; 70496; 70498; 70551; 71045; 80048; 80307; 80320; 83735; 84484; 85025; 85610; 85730; 92526; 92610; 93005; 97116; 97162; 97166; 97530; 97802; 99285; 99406; J7030; J7120; Q9967; A4216; G0480; J3486; J3490